=== PATIENT | male | born 1930 | race Caucasian/White ===

== ENCOUNTER 2017-01-18 18:30 | Emergency (ER) | payer MEDICARE ==
[~2017-01-18] VITALS: Ht 177.8 cm; Wt 80.0 kg
[~2017-01-18 18:30] MED LIST: CIPR500T4 PO; COUM5TAB PO; CREO2400 PO; LISI10TA PO; NIAC500 PO; PROS5TAB2 PO; ULTR50TA PO; URIB118C PO; WARF7.5 PO
[2017-01-18 18:32] VITALS: BP 134/75; PULSE 84; RESP 15; TEMP 98.2; O2SAT 97
[2017-01-18] MEDS ORDERED: LISI-586 PO (19:06)
[2017-01-18] MEDS ORDERED: ATOR10TA15 PO (19:06)
[2017-01-18] MEDS ORDERED: WARF-21 PO (19:06)
[2017-01-18] MEDS ORDERED: WARF-23 PO (19:06)
[2017-01-18] MEDS ORDERED: CREON24 PO ×2 (19:07→19:11)
[2017-01-18] MEDS ORDERED: NIAC500T52 PO (19:12)
[2017-01-18] MEDS ORDERED: SODIUM CHLORIDE 0.9% FLUSH 10 ML FLUSH IVF PRN (19:15)
[2017-01-18 19:45] VITALS: O2SAT 96
[2017-01-18 20:00] LABS: AUTOMATED NEUTROPHIL # 5.7 TH/MM3 (1.8-7.7); BASOPHIL # 0.1 TH/MM3 (0-0.2); BASOPHIL % 0.6 % (0.0-2.0); EOSINOPHIL # 0.1 TH/MM3 (0-0.4); EOSINOPHIL % 1.7 % (0.0-4.0); HEMATOCRIT 32.4 % (39.0-51.0); HEMO FLAGS DIFF FINAL; LYMPH % 18.2 % (9.0-44.0); LYMPHOCYTE # 1.5 TH/MM3 (1.0-4.8); MEAN CELL VOLUME 88.4 FL (80.0-100.0); MEAN CORPUSCULAR HEMOGLOBIN 29.7 PG (27.0-34.0); MEAN CORPUSCULAR HGB CONC 33.6 % (32.0-36.0); MONO % 8.1 % (0.0-8.0); NEUT % 71.4 % (16.0-70.0); PLATELET COUNT 306 TH/MM3 (150-450); RED BLOOD COUNT 3.66 MIL/MM3 (4.50-5.90); RED CELL DISTRIBUTION WIDTH 14.5 % (11.6-17.2)
[2017-01-18 20:26] LABS: BICARBONATE 27.3 MEQ/L (21.0-32.0); POTASSIUM 4.6 MEQ/L (3.5-5.1)
[2017-01-18] MEDS ORDERED: IODIXANOL 320 MG/ML 10 ML VIAL (for RAD SPEC) IV ONE (20:36)
--- NOTE | 2017-01-18 20:56 | RADRPT ---
EXAM DATE/TIME: 01/18/2017 20:36 [facility] COMPARISON: Report only CTA CHEST W 3D RECON, January 14, 2011, 6:26. INDICATIONS : Abnormal chest x-ray; possible mass. IV CONTRAST: 47 cc Visipaque (iodixanol) IV RADIATION DOSE: 5.57 CTDIvol (mGy) MEDICAL HISTORY : Cardiovascular disease. Hypertension. Diabetes mellitus type 2.PE SURGICAL HISTORY : None. ENCOUNTER: Initial ACUITY: 1 day PAIN SCALE: 5/10 LOCATION: chest TECHNIQUE: Volumetric scanning of the chest was performed. Using automated exposure control and adjustment of t he mA and/or kV according to patient size, radiation dose was kept as low as reasonably achievable to obtain optimal diagnostic quality images. FINDINGS: Large, heterogeneous dural based mass seen posteriorly of the left hemithorax, measures approximately 9.0 x 12.8 x 14.7 cm in size. A similar mass is seen laterally measuring 3.1 x 4.4 x 3.1 cm. There i s a small left pleural effusion. Lungs are clear. No lymphadenopathy. Normal heart size. Right and left-sided coronary artery calcification noted. 16 mm sclerotic focus seen of T5. No other focal bone lesion seen. CONCLUSION: Pleural-based masses on the left, with a very large mass posteriorly and a smaller mass laterally, ma lignant until proven otherwise. Small left pleural effusion. These were not reported on the prior ashwin dy. Indeterminate sclerotic focus of T5. Enrrique Torres MD on January 18, 2017 at 20:51 Board Certified Radiologist. This report was verified electronically.
--- NOTE | 2017-01-18 21:00 | PD ---
HPI Chief Complaint: Pain: Acute or Chronic Time Seen by Provider: 18:49 Travel History International Travel<30 days: No Contact w/Intl Traveler<30days: No Traveled to known affect area: No History of Present Illness HPI The patient is 86. He has had pain in his left thoracic back. A rib series of the left chest was performed in urgent care clinic and a mass was observed. The patient was sent directly here for cross sectional imaging. He's had no shortness of breath or chest pain per se. The back pain has been present for a few weeks. It's worse with palpation. He denies any recent injury. No cough or fever. He has a history of pulmonary embolism from years prior however completed his anticoagulation course. He follows up with Dr. Quarles. [facility], [facility] Past Medical History Arthritis: No Asthma: No Blood Disorders: No Heart Rhythm Problems: No Cancer: No Cardiovascular Problems: Yes High Cholesterol: Yes Chest Pain: No Congestive Heart Failure: No COPD: No Cerebrovascular Accident: No Diabetes: Yes Patient Takes Glucophage: No Diminished Hearing: Yes (RUBY) Gastrointestinal Disorders: Yes GERD: Yes Glaucoma: No Genitourinary: Yes (ENLARGED PROSTATE-MICROWAVE PROCEDURE 07/26/08) Headaches: No Hepatitis: No Hiatal Hernia: No Hypertension: Yes Implanted Vascular Access Dvce: No Kidney Stones: No Medical other: No Musculoskeletal: No Neurologic: Yes (TEMPERO-ARTERITIS) Psychiatric: No Reproductive: No Respiratory: Yes Immunizations Current: No Migraines: No Myocardial Infarction: No Renal Failure: No Seizures: No Sleep Apnea: No Thyroid Disease: No Ulcer: No Past Surgical History Abdominal Surgery: No Appendectomy: No Cardiac Surgery: No Cholecystectomy: No Ear Surgery: No Endocrine Surgery: No Eye Surgery: No Genitourinary Surgery: No Gynecologic Surgery: No Neurologic Surgery: No Oral Surgery: Yes (TEETH EXTRACTIONS) Pacemaker: No Thoracic Surgery: No Other Surgery: Yes (PROSTATE MICROWAVE SURGERY) Social History Alcohol Use: Yes (RARELY) Tobacco Use: Yes (1 PPD) Substance Use: No Allergies-Medications (Allergen,Severity, Reaction): Coded Allergies: No Known Allergies (Unverified , 12/02/14) Reported Meds & Prescriptions Reported Meds & Active Scripts Active Reported Niacin ER (Niacin) 500 Mg Tab 500 Mg PO DAILY Creon (Amylase/Lipase/Protease) 24,000-76,000-120,000 Units Cap 1 Cap PO TIDPC PRN Creon (Amylase/Lipase/Protease) 24,000-76,000-120,000 Units Cap 2 Cap PO TIDPC Zestoretic (Lisinopril-Hctz) 20-12.5 Mg Tab 0.5 Tab PO DAILY Warfarin 5 Mg Tab 5 Mg PO SUMOTUWETHSA @ 1600 Warfarin 7.5 Mg Tab 7.5 Mg PO FR Atorvastatin (Atorvastatin Calcium) 10 Mg Tab 10 Mg PO AC DINNER Physical Exam Narrative GENERAL: 86-year-old male well-nourished well-developed pleasant SKIN: Focused skin assessment warm/dry. HEAD: Atraumatic. Normocephalic. EYES: Pupils equal and round. No scleral icterus. No injection or drainage. ENT: No nasal bleeding or discharge. Mucous membranes pink and moist. NECK: Trachea midline. No JVD. CARDIOVASCULAR: Regular rate and rhythm. No murmur appreciated. RESPIRATORY: No accessory muscle use. Clear to auscultation. Breath sounds equal bilaterally. GASTROINTESTINAL: Abdomen soft, non-tender, nondistended. Hepatic and splenic margins not palpable. MUSCULOSKELETAL: No obvious minimal tenderness left parathoracic musculature. NEUROLOGICAL: Awake and alert. No obvious cranial nerve deficits. Motor grossly within normal limits. Normal speech. PSYCHIATRIC: Appropriate mood and affect; insight and judgment normal. Data Data Last Documented VS Vital Signs Date Time Temp Pulse Resp B/P Pulse Ox O2 Delivery O2 Flow Rate FiO2 01/18/17 21:33 79 16 122/59 97 01/18/17 19:45 Room Air 01/18/17 18:32 98.2 Orders Electrocardiogram (01/18/17 19:07) Basic Metabolic Panel (Bmp) (01/18/17 19:07) Complete Blood Count With Diff (01/18/17 19:07) Ecg Monitoring (01/18/17 19:07) Iv Access Insert/Monitor (01/18/17 19:07) Oximetry (01/18/17 19:07) Sodium Chloride 0.9% Flush (Ns Flush) (01/18/17 19:15) Ct Thorax/ Chest W Iv Contrast (01/18/17 ) Iodixanol 320 Inj (Visipaque 320 Inj) (01/18/17 20:36) Labs Laboratory Tests Test 01/18/17 19:40 White Blood Count 8.0 TH/MM3 Red Blood Count 3.66 MIL/MM3 Hemoglobin 10.9 GM/DL Hematocrit 32.4 % Mean Corpuscular Volume 88.4 FL Mean Corpuscular Hemoglobin 29.7 PG Mean Corpuscular Hemoglobin 33.6 % Concent Red Cell Distribution Width 14.5 % Platelet Count 306 TH/MM3 Mean Platelet Volume 7.4 FL Neutrophils (%) (Auto) 71.4 % Lymphocytes (%) (Auto) 18.2 % Monocytes (%) (Auto) 8.1 % Eosinophils (%) (Auto) 1.7 % Basophils (%) (Auto) 0.6 % Neutrophils # (Auto) 5.7 TH/MM3 Lymphocytes # (Auto) 1.5 TH/MM3 Monocytes # (Auto) 0.6 TH/MM3 Eosinophils # (Auto) 0.1 TH/MM3 Basophils # (Auto) 0.1 TH/MM3 CBC Comment DIFF FINAL Differential Comment Sodium Level 137 MEQ/L Potassium Level 4.6 MEQ/L Chloride Level 101 MEQ/L Carbon Dioxide Level 27.3 MEQ/L Anion Gap 9 MEQ/L Blood Urea Nitrogen 45 MG/DL Creatinine 1.74 MG/DL Estimat Glomerular Filtration 37 ML/MIN Rate Random Glucose 182 MG/DL Calcium Level 8.9 MG/DL MDM Medical Decision Making Medical Screen Exam Complete: Yes Emergency Medical Condition: Yes Medical Record Reviewed: Yes Differential Diagnosis mass, abscess, effusion Narrative Course CBC & BMP Diagram 01/18/17 19:40 Last [address] 01/18/17 0000 Signed Impressions: Service Date/Time: Wednesday, January 18, 2017 20:36 - CONCLUSION: Pleural-based masses on the left, with a very large mass posteriorly and a smaller mass laterally, malignant until proven otherwise. Small left pleural effusion. These were not reported on the prior study. Indeterminate sclerotic focus of T5. Enrrique Torres MD The patient is resting comfortably and feels better, is alert and in no distress. The patients results and examination findings were discussed. The repeat examination is unremarkable and benign. The history, exam, diagnostic testing, and current condition do not suggest any significant pathology to warrant further testing, continued ED treatment, admission, or surgical evaluation at this point. The vital signs have been stable. The patient does not have uncontrollable pain, intractable vomiting, or other significant symptoms. The patient's condition is stable and appropriate for discharge. The patient will pursue further outpatient evaluation with a primary care physician or other designated or consulting physician as indicated in the discharge instructions. The patient expressed understanding and was agreeable with this plan. Diagnosis Primary Impression: Lung mass Additional Impression: Back pain Qualified Code: M54.6 - Left-sided thoracic back pain, unspecified chronicity Referrals: Swathi Sahni MD f/u on Saturday Additional Instructions: You have a choice when it comes to health care, and we are glad that you chose [facility]. Hopefully, we have met your expectations on today's visit. You are welcome to return to [facility] at any time, as we are committed to meeting the health care needs of our community. Med/Other Pt SpecificInfo: No Change to Meds Disposition: 01 DISCHARGE HOME Condition: Rodríguez Lizama MD January 18, 2017 21:00
[2017-01-18 21:33] VITALS: BP 122/59; PULSE 79; RESP 16; O2SAT 97
--- NOTE | 2017-01-19 10:06 | EKG ---
Date Performed: 01/18/2017 Time Performed: 19:33:02 PTAGE: 86 years EKG: Sinus rhythm WITH FIRST DEGREE AV BLOCK MARKED LEFT AXIS DEVIATION RIGHT BUNDLE BRANCH BLOCK ABNORMAL ECG PREVIOUS TRACING : 01/14/2011 04.39 DOCTOR: Gia Lugo Interpretating Date/Time 01/19/2017 10:05:06
== END 2017-01-18 22:00 | disposition home or self-care (01) ==
LOC: NEPD 18:30
DX: R91.8 Other nonspecific abnormal finding of lung field (principal); M54.6 Pain in thoracic spine; J90 Pleural effusion, not elsewhere classified; I44.0 Atrioventricular block, first degree; I45.10 Unspecified right bundle-branch block; E78.00 Pure hypercholesterolemia, unspecified; E11.9 Type 2 diabetes mellitus without complications; H91.90 Unspecified hearing loss, unspecified ear; I10 Essential (primary) hypertension; F17.210 Nicotine dependence, cigarettes, uncomplicated
CPT/HCPCS: 71260; 80048; 85025; 93005; 99284; Q9967

== ENCOUNTER 2017-02-04 07:57 | Day surgery (SDC) | payer MEDICARE ==
[2017-02-04] VITALS (9 sets, daily range): BP systolic 115–140; BP diastolic 55–69; PULSE 77–89; RESP 16–20; TEMP 98.1–99; O2SAT 95–97
[~2017-02-04] VITALS: Ht 177.8 cm; Wt 75.0 kg
[~2017-02-04 07:57] MED LIST changes: +ATOR10TA15 PO; -CIPR500T4 PO; -COUM5TAB PO; -CREO2400 PO; +CREON24 PO; +LISI-586 PO; -LISI10TA PO; -NIAC500 PO; +NIAC500T52 PO; -PROS5TAB2 PO; -ULTR50TA PO; -URIB118C PO; +WARF-21 PO; +WARF-23 PO; -WARF7.5 PO
[2017-02-04] MEDS ORDERED: PERC5TAB12 PO (08:29)
[2017-02-04] MEDS ORDERED: CENTTAB PO (08:29)
[2017-02-04] MEDS ORDERED: SODIUM CHLOR 0.9% 1000 ML IV SCH (08:45)
[2017-02-04 09:08] LABS: INTERNATIONAL NORMALIZED RATIO 1.2 RATIO; PROTHROMBIN TIME - PATIENT 13.9 SEC (9.8-11.6)
[2017-02-04] MEDS ORDERED: LIDOCAINE 1%/EPINEPHrine 1:100,000 SOLN 20 ML VIAL ONE (09:24)
[2017-02-04] MEDS ORDERED: MIDAZOLAM HCL 5 MG/5 ML VIAL ONE (09:33)
[2017-02-04] MEDS ORDERED: fentaNYL CITRATE 250 MCG/5 ML AMP ONE (09:33)
--- NOTE | 2017-02-04 10:45 | RADRPT ---
EXAM DATE/TIME: 02/04/2017 09:48 [facility] COMPARISON: CT THORAX W CONTRAST, January 18, 2017, 20:36. INDICATIONS : Left lung mass. SEDATION TIME: 30 minutes BIOPSY SITE: Left lung MEDICATION(S): 1.) 2 mg midazolam (Versed) IV 2.) 100 mcg fentanyl (Sublimaze) IV DEVICE(S): 1.) 18 gauge Millan blunt needle 2.) 20 gauge Temno core biopsy needle MEDICAL HISTORY : Shortness of breath. SURGICAL HISTORY : None. ENCOUNTER: Initial ACUITY: 1 day PAIN SCORE: 0/10 LOCATION: chest A total of nine core specimen(s) were obtained and sent to the laboratory for pathologic evaluation. PROCEDURE: 1. CT guided lung biopsy. 2. Conscious sedation with continuous EKG and oximetry monitoring. 3. EKG and oximetry remained stable throughout the procedure. Prior to the procedure informed consent was obtained. The patient's prior CT was reviewed. Using auto mated exposure control and adjustment of the mA and/or kV according to patient size, radiation dose w as kept as low as reasonably achievable to obtain optimal diagnostic quality images. The site was prepped in a sterile fashion. Full sterile technique was used, including cap, mask, malaika rile gloves and gown and a large sterile sheet. Hand hygiene and 2% chlorhexidine and/or betadine/al cohol prep was utilized per protocol for cutaneous antisepsis. The skin and subcutaneous tissues wer e infiltrated with local anesthetic solution. With CT guidance left lower lobe mass was localized. Biopsy was performed using the prescribed needle as above. Adequate hemostasis was obtained with compression at the puncture site. Follow-up CT scan reveals no pneumothorax or acute abnormality. Conscious sedation was performed with the prescribed dosages and duration as above in the presence of an independent trained radiology nurse to assist in the monitoring of the patient. EKG and oximetry remained stable throughout the procedure. The patient tolerated the procedure well and there were no complications. The patient was sent to Radiology Outpatient Unit in stable condition. CONCLUSION: Uncomplicated CT guided biopsy of the left lung mass. Enrrique Rowan MD on February 04, 2017 at 10:29 Board Certified Radiologist. This report was verified electronically.
[2017-02-04] MEDS ORDERED: oxyCODONE/ACETAMINOPHEN 5 MG/325 MG TAB PO PRN (11:00)
--- NOTE | 2017-02-04 11:47 | RADRPT ---
EXAM DATE/TIME: 02/04/2017 11:16 [facility] COMPARISON: CT THORAX W CONTRAST, January 18, 2017, 20:36. CT NEEDLE BIOPSY LUNG, LEFT, February 04, 2017, 9:48. INDICATIONS : Status post left lung biopsy. MEDICAL HISTORY : Pulmonary embolism. SURGICAL HISTORY : None. ENCOUNTER: Initial ACUITY: 1 day PAIN SCORE: 5/10 LOCATION: Left chest FINDINGS: There is no evidence of pneumothorax following left lung biopsy. Large left lung mass is noted. Basil ar density is presumably worsening consolidative change. Right lung is grossly clear. CONCLUSION: No pneumothorax Enrrique Pedroza MD on February 04, 2017 at 11:43 Board Certified Radiologist. This report was verified electronically.
--- NOTE | 2017-02-04 13:33 | RADRPT ---
EXAM DATE/TIME: 02/04/2017 12:52 [facility] COMPARISON: CT THORAX W CONTRAST, January 18, 2017, 20:36. CHEST EXPIRATION ONLY, February 04, 2017, 11:16. INDICATIONS : Post left side lung bx. MEDICAL HISTORY : short of breath. SURGICAL HISTORY : None. ENCOUNTER: Initial ACUITY: 1 day PAIN SCORE: 2/10 LOCATION: Bilateral chest FINDINGS: Portable upright expiratory view of the chest demonstrates no pneumothorax following recent left lung mass biopsy. There is a persistent large masslike opacity overlying the left mid and lower lung zone . Right lung demonstrates no abnormality. CONCLUSION: No pneumothorax is visualized. Enrrique Rowan MD on February 04, 2017 at 13:31 Board Certified Radiologist. This report was verified electronically.
== END 2017-02-04 14:18 | disposition home or self-care (01) ==
LOC: HRAD 07:57 → HRIP 07:58 → HRAD 14:18
PROVIDERS: ATTEND Internal Medicine
DX: R91.8 Other nonspecific abnormal finding of lung field (principal); Z86.711 Personal history of pulmonary embolism
CPT/HCPCS: 32405; 71010; 77012; 85610; 85730; 88305; 88341; 88342; J2250; J3010

== ENCOUNTER 2017-02-22 19:20 | Inpatient (IN) | payer MEDICARE ==
[~2017-02-22] VITALS: Ht 175.3 cm; Wt 77.5 kg
[2017-02-22] VITALS (7 sets, daily range): BP systolic 106–118; BP diastolic 50–60; PULSE 72–110; RESP 14–20; TEMP 97.8–98.5; O2SAT 94–95
[~2017-02-22 19:20] MED LIST changes: +CENTTAB PO; +PERC5TAB12 PO
[2017-02-22] MEDS ORDERED: MULT1TAB64 PO (19:46)
[2017-02-22] MEDS ORDERED: HYDR-3516 PO (19:46)
--- NOTE | 2017-02-22 20:05 | PD ---
HPI Chief Complaint: Abnormal Results Time Seen by Provider: 19:55 Travel History International Travel<30 days: No Contact w/Intl Traveler<30days: No Traveled to known affect area: No History of Present Illness HPI Patient is an 86-year-old male presents emergency department for evaluation of elevated INR. Patient had a routine INR performed today and his primary care physician's office and he was told that it was 15 and he needed to come into the emergency department. Patient has a history of lung cancer on chemotherapy with Dr. Simpson. 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 Patient complains of his chronic left-sided chest pain secondary to the tumor which is on the left side of his chest and requests pain medicine. He denies any blood in the stool dark in the stool abdominal pain nausea vomiting diarrhea. PFSH Past Medical History Hx Anticoagulant Therapy: Yes (warfarin 5mg 6days a week and 7.5mg on saturday) Arthritis: No Asthma: No Blood Disorders: No Heart Rhythm Problems: No Cancer: Yes (LEFT LUNG ) Cardiovascular Problems: Yes High Cholesterol: Yes Chest Pain: No Congestive Heart Failure: No COPD: No Cerebrovascular Accident: No Diabetes: No Diminished Hearing: Yes ([place]) Gastrointestinal Disorders: Yes GERD: Yes Glaucoma: No Genitourinary: Yes (ENLARGED PROSTATE-MICROWAVE PROCEDURE 07/26/08) Headaches: No Hepatitis: No Hiatal Hernia: No Hypertension: Yes Implanted Vascular Access Dvce: No Kidney Stones: No Musculoskeletal: No Neurologic: Yes (TEMPERO-ARTERITIS) Psychiatric: No Reproductive: No Respiratory: Yes (PE) Immunizations Current: Yes Migraines: No Myocardial Infarction: No Renal Failure: No Seizures: No Sleep Apnea: No Thyroid Disease: No Ulcer: No Tetanus Vaccination: Unknown Influenza Vaccination: Yes Past Surgical History Abdominal Surgery: No Appendectomy: No Cardiac Surgery: No Cholecystectomy: No Ear Surgery: No Endocrine Surgery: No Eye Surgery: No Genitourinary Surgery: No Gynecologic Surgery: No Neurologic Surgery: No Oral Surgery: Yes (TEETH EXTRACTIONS) Pacemaker: No Thoracic Surgery: No Other Surgery: Yes (PROSTATE MICROWAVE SURGERY) Social History Alcohol Use: No Tobacco Use: Yes (1 PPD UNTIL 02/14/17 NOW 3 CIGS DAILY) Substance Use: No Allergies-Medications (Allergen,Severity, Reaction): Coded Allergies: No Known Allergies (Unverified , 02/04/17) Reported Meds & Prescriptions Reported Meds & Active Scripts Active Reported Francisco Willis Men Tablet (Multivit-Min/FA/Lycopen/Lutein) 1 Each Tablet 1 Tab PO DAILY Hydrocodone-Acetaminophen 5-325 mg Tab 1 Tab PO Q4H Niacin ER (Niacin) 500 Mg Tab 500 Mg PO DAILY Creon (Amylase/Lipase/Protease) 24,000-76,000-120,000 Units Cap 2 Cap PO TIDPC Zestoretic (Lisinopril-Hctz) 20-12.5 Mg Tab 0.5 Tab PO DAILY Warfarin 5 Mg Tab 5 Mg PO SUMOTUWETHSA @ 1600 Warfarin 7.5 Mg Tab 7.5 Mg PO FR Atorvastatin (Atorvastatin Calcium) 10 Mg Tab 10 Mg PO AC DINNER Review of Systems Except as stated in HPI: all other systems reviewed are Neg Physical Exam Narrative GENERAL: Well-developed well-nourished in no discomfort. SKIN: There are scattered bruising superficial on his person. Left hand, right eyelid, right forearm. Nothing on his torso. HEAD: Atraumatic. Normocephalic. EYES: Pupils equal and round. No scleral icterus. No injection or drainage. ENT: No nasal bleeding or discharge. Mucous membranes pink and moist. NECK: Trachea midline. No JVD. CARDIOVASCULAR: Regular rate and rhythm. No murmur appreciated. RESPIRATORY: No accessory muscle use. Clear to auscultation. Breath sounds equal bilaterally. GASTROINTESTINAL: Abdomen soft, non-tender, nondistended. Hepatic and splenic margins not palpable. RECTAL: No gross blood, no melena, trace positive occult stool. MUSCULOSKELETAL: No obvious deformities. No clubbing. No cyanosis. No edema. NEUROLOGICAL: Awake and alert. Cranial nerves II through XII are grossly intact nonfocal, 5 out of 5 strength in all 4 extremities.. PSYCHIATRIC: Appropriate mood and affect; insight and judgment normal. Data Data Last Documented VS Vital Signs Date Time Temp Pulse Resp B/P Pulse Ox O2 Delivery O2 Flow Rate FiO2 02/22/17 21:15 98 16 106/54 94 Room Air 02/22/17 19:32 98.1 Orders Ckmb (Isoenzyme) Profile (02/22/17 20:01) Complete Blood Count With Diff (02/22/17 20:01) Comprehensive Metabolic Panel (02/22/17 20:01) Magnesium (Mg) (02/22/17 20:01) Prothrombin Time / Inr (Pt) (02/22/17 20:01) Act Partial Throm Time (Ptt) (02/22/17 20:01) Troponin I (02/22/17 20:01) Ecg Monitoring (02/22/17 20:01) Iv Access Insert/Monitor (02/22/17 20:01) Oximetry (02/22/17 20:01) Oxygen Administration (02/22/17 20:01) Sodium Chloride 0.9% Flush (Ns Flush) (02/22/17 20:15) Acetamin-Hydrocod 325-5 Mg ([place] 5-325 (02/22/17 20:15) Tylenol (Acetaminophen) (02/22/17 20:02) Phytonadione (Mephyton) (02/22/17 21:30) Type And Screen (02/22/17 21:19) Red Blood Cells (Rbc) (02/22/17 21:19) Fresh Frozen Plasma (Ffp) (02/22/17 21:19) Blood Product Administration .UPON TRANSFUSION (02/22/17 21:19) Sodium Chlor 0.9% 250 Ml Inj (Ns 250 Ml (02/22/17 21:30) Chest, Single Ap (02/22/17 ) Electrocardiogram (02/22/17 ) Ct Brain W/O Iv Contrast(Rout) (02/22/17 ) Admit Order (Ed Use Only) (02/22/17 ) Labs Laboratory Tests Test 02/22/17 02/22/17 02/22/17 20:10 21:33 21:35 White Blood Count 14.3 TH/MM3 Red Blood Count 2.80 MIL/MM3 Hemoglobin 7.8 GM/DL Hematocrit 24.1 % Mean Corpuscular Volume 86.3 FL Mean Corpuscular Hemoglobin 27.9 PG Mean Corpuscular Hemoglobin 32.3 % Concent Red Cell Distribution Width 14.0 % Platelet Count 659 TH/MM3 Mean Platelet Volume 7.4 FL Neutrophils (%) (Auto) 77.2 % Lymphocytes (%) (Auto) 10.7 % Monocytes (%) (Auto) 11.5 % Eosinophils (%) (Auto) 0.1 % Basophils (%) (Auto) 0.5 % Neutrophils # (Auto) 11.1 TH/MM3 Lymphocytes # (Auto) 1.5 TH/MM3 Monocytes # (Auto) 1.6 TH/MM3 Eosinophils # (Auto) 0.0 TH/MM3 Basophils # (Auto) 0.1 TH/MM3 CBC Comment DIFF FINAL Differential Comment Prothrombin Time GREATER THAN 180.0 SEC Prothromb Time International GREATER THAN Ratio 16.7 RATIO Activated Partial 107.8 SEC Thromboplast Time Sodium Level 137 MEQ/L Potassium Level 5.1 MEQ/L Chloride Level 101 MEQ/L Carbon Dioxide Level 23.8 MEQ/L Anion Gap 12 MEQ/L Blood Urea Nitrogen 70 MG/DL Creatinine 1.50 MG/DL Estimat Glomerular Filtration 44 ML/MIN Rate Random Glucose 137 MG/DL Calcium Level 7.9 MG/DL Magnesium Level 2.3 MG/DL Total Bilirubin 0.4 MG/DL Aspartate Amino Transf 45 U/L (AST/SGOT) Alanine Aminotransferase 47 U/L (ALT/SGPT) Alkaline Phosphatase 145 U/L Total Creatine Kinase 66 U/L Troponin I LESS THAN 0.02 NG/ML Total Protein 6.5 GM/DL Albumin 2.1 GM/DL Acetaminophen Level 7.0 MCG/ML Blood Type A POSITIVE A POSITIVE Antibody Screen NEGATIVE Crossmatch Leukocyte-Reduced Red Blood Cells Blood Bank Comment MDM Medical Decision Making Medical Screen Exam Complete: Yes Emergency Medical Condition: Yes Differential Diagnosis Elevated INR, Coumadin toxicity, Tylenol toxicity seems highly unlikely, liver failure, Narrative Course Patient was roomed in emergency Department, there is no signs of overt bleeding at this time. Coags returned and shows an INR greater than 16.7. Patient was discussed with Dr. Workman is examination scorer for hematology. We discussed the patient 's hemoglobin has dropped 3 g over the past 30 days. To that and he was given 2 units PRBCs by mouth vitamin K 10 mg as well as FFP. He recommended that vitamin K be given 10 mg every 8 hours and repeated INR in the morning. To that and he will be admitted to the hospital. Remains hemodynamically stable in the emergency department. Discussion admission with Dr. Mclean 's request the patient have a CAT scan of her head to rule out intracranial bleeding and I think this is a reasonable thing to pursue. The patient is neurologically nonfocal and I think that there is a low probability however the INR does increase the probability minimally. CT head was ordered and shows no acute intracranial abnormality. Patient also had a chest x-ray at that time to further evaluate the mass, there was a pleural effusion which was increased in size. CAT scan of the chest was ordered with IV contrast slightly after the patient went to the floor to rule out intrathoracic bleeding and there is no evidence of intrathoracic bleeding. Last [address] 02/22/17 Signed Impressions: Service Date/Time: Wednesday, February 22, 2017 22:09 - CONCLUSION: Normal examination for a patient of this age. Franco Parnell MD Chest X-Ray 02/22/17 Signed Impressions: Service Date/Time: Wednesday, February 22, 2017 21:45 - CONCLUSION: 1. Large left effusion occupying about two thirds of the left hemithorax. This is increased in size since February 04. Franco Parnell MD Chest CT 02/22/17 Signed Impressions: Service Date/Time: Wednesday, February 22, 2017 23:48 - CONCLUSION: 1. Interval increase in the size of the large left lung mass. 2. Interval increase in left effusion which is partially loculated. 3. Chronic pancreatitis again noted with multiple calcifications. The duct remains prominent. 4. Severe hepatic steatosis. Silas Altamirano MD Diagnosis Primary Impression: Supratherapeutic INR Admitting Information Admitting Physician Requests: Admit Condition: Stable Serafin Das MD Feb 22, 2017 20:05
[2017-02-22 20:14] LABS: AUTOMATED NEUTROPHIL # 11.1 TH/MM3 (1.8-7.7); BASOPHIL # 0.1 TH/MM3 (0-0.2); BASOPHIL % 0.5 % (0.0-2.0); EOSINOPHIL % 0.1 % (0.0-4.0); HEMATOCRIT 24.1 % (39.0-51.0); HEMO FLAGS DIFF FINAL; LYMPH % 10.7 % (9.0-44.0); LYMPHOCYTE # 1.5 TH/MM3 (1.0-4.8); MEAN CELL VOLUME 86.3 FL (80.0-100.0); MEAN CORPUSCULAR HEMOGLOBIN 27.9 PG (27.0-34.0); MEAN CORPUSCULAR HGB CONC 32.3 % (32.0-36.0); MONO % 11.5 % (0.0-8.0); NEUT % 77.2 % (16.0-70.0); PLATELET COUNT 659 TH/MM3 (150-450); WHITE BLOOD COUNT 14.3 TH/MM3 (4.0-11.0)
[2017-02-22] MEDS ORDERED: ACETAMINOPHEN/HYDROcodone 325 MG/5 MG TAB PO ONE (20:15)
[2017-02-22] MEDS ORDERED: SODIUM CHLORIDE 0.9% FLUSH 10 ML FLUSH IVF PRN (20:15)
[2017-02-22 20:22] LABS: CHLORIDE 101 MEQ/L (98-107); POTASSIUM 5.1 MEQ/L (3.5-5.1); SODIUM (NA) 137 MEQ/L (136-145)
[2017-02-22 20:26] LABS: ANION GAP 12 MEQ/L (5-15); BICARBONATE 23.8 MEQ/L (21.0-32.0); BLOOD UREA NITROGEN 70 MG/DL (7-18); MAGNESIUM 2.3 MG/DL (1.5-2.5)
[2017-02-22 20:29] LABS: ALT (GPT) 47 U/L (12-78); AST (GOT) 45 U/L (15-37); GLOMERULAR FILTRATION RATE 44 ML/MIN (>89)
[2017-02-22 20:30] LABS: TOTAL BILIRUBIN ADULT 0.4 MG/DL (0.2-1.0)
[2017-02-22 20:32] LABS: ALKALINE PHOSPHATASE 145 U/L (45-117)
[2017-02-22 20:35] LABS: CREATINE KINASE 66 U/L (39-308)
[2017-02-22 20:55] LABS: PROTHROMBIN TIME - PATIENT GREATER THAN 180.0 SEC (9.8-11.6)
[2017-02-22 20:56] LABS: APTT (PATIENT) 107.8 SEC (24.3-30.1); INTERNATIONAL NORMALIZED RATIO GREATER THAN 16.7 RATIO
[2017-02-22] MEDS ORDERED: PHYTONADIONE 5 MG TAB PO ONE (21:30)
[2017-02-22] MEDS ORDERED: SODIUM CHLOR 0.9% 250 ML INJ 250 ML IV ONE (21:30)
[2017-02-22] MEDS ORDERED: MAGNESIUM HYDROXIDE SUSP 30 ML CUP PO PRN (22:00)
[2017-02-22] MEDS ORDERED: BISACODYL 10 MG SUPP RECTAL PRN (22:00)
[2017-02-22] MEDS ORDERED: LACTULOSE SYRUP 20 GM/30 ML CUP PO PRN (22:00)
[2017-02-22] MEDS ORDERED: ACETAMINOPHEN 325 MG TAB PO PRN (22:00)
[2017-02-22] MEDS ORDERED: SODIUM CHLORIDE 0.9% FLUSH 10 ML FLUSH IV FLUSH PRN (22:00)
[2017-02-22] MEDS ORDERED: ONDANSETRON HCL 4 MG/2 ML VIAL IVP PRN (22:00)
[2017-02-22] MEDS ORDERED: SENNOSIDES 8.6 MG TAB PO PRN (22:00)
--- NOTE | 2017-02-22 22:30 | RADHPO ---
EXAM DATE/TIME: 02/22/2017 21:45 [facility] COMPARISON: CHEST EXPIRATION ONLY, February 04, 2017, 12:52. INDICATIONS : Chest pain. MEDICAL HISTORY : Cardiovascular disease. Hypertension. Diabetes mellitus type 2. PE SURGICAL HISTORY : Left lung biopsy ENCOUNTER: Initial ACUITY: 1 day PAIN SCORE: 7/10 LOCATION: Bilateral chest FINDINGS: There is a large left effusion with reticulation of fluid since February 04. Right lung remains relatively clear. No pneumothorax. CONCLUSION: 1. Large left effusion occupying about two thirds of the left hemithorax. This is increased in size s gordon February 04. Franco Parnell MD on February 22, 2017 at 22:27 Board Certified Radiologist. This report was verified electronically.
--- NOTE | 2017-02-22 22:33 | RADHPO ---
EXAM DATE/TIME: 02/22/2017 22:09 [facility] COMPARISON: No previous studies available for comparison. INDICATIONS : History of lung cancer, on anticoagulants RADIATION DOSE: 63.24 CTDIvol (mGy) MEDICAL HISTORY : Carcinoma, lung. Hypertension. SURGICAL HISTORY : None. ENCOUNTER: Initial ACUITY: 1 day PAIN SCALE: 0/10 LOCATION: cranial TECHNIQUE: Multiple contiguous axial images were obtained of the head. Using automated exposure control and adj ustment of the mA and/or kV according to patient size, radiation dose was kept as low as reasonably a chievable to obtain optimal diagnostic quality images. FINDINGS: CEREBRUM: The ventricles are normal for age. No evidence of midline shift, mass lesion, hemorrhage or acute in farction. No extra-axial fluid collections are seen. POSTERIOR FOSSA: The cerebellum and brainstem are intact. The 4th ventricle is midline. The cerebellopontine angle i s unremarkable. EXTRACRANIAL: The visualized portion of the orbits is intact. SKULL: The calvaria is intact. No evidence of skull fracture. CONCLUSION: Normal examination for a patient of this age. Franco Parnell MD on February 22, 2017 at 22:31 Board Certified Radiologist. This report was verified electronically.
[2017-02-22] MEDS: MORPHINE SULFATE 4 MG/ML INJ IV PRN (23:45)
[2017-02-23] VITALS (26 sets, daily range): BP systolic 78–118; BP diastolic 37–63; PULSE 82–92; RESP 11–27; TEMP 97.3–98.7; O2SAT 94–98
[2017-02-23] MEDS ORDERED: IOHEXOL 350 MG/ML 10 ML VIAL (for RAD DIAG) IV ONE (00:09)
[2017-02-23] MEDS: ACETAMINOPHEN/HYDROcodone 325 MG/5 MG TAB PO PRN ×4 (00:13→20:17)
--- NOTE | 2017-02-23 00:16 | RADHPO ---
EXAM DATE/TIME: 02/22/2017 23:48 [facility] COMPARISON: CT NEEDLE BIOPSY LUNG, LEFT, February 04, 2017, 9:48. CHEST SINGLE AP, February 22, 2017, 21:45. CT THORAX W CONTRAST, January 18, 2017, 20:36. INDICATIONS : Evaluate for hemorrhage. Low INR. History of lung cancer. IV CONTRAST: 70 cc Omnipaque 350 (iohexol) IV RADIATION DOSE: 12.54 CTDIvol (mGy) MEDICAL HISTORY : Carcinoma, lung. Hypertension. SURGICAL HISTORY : None. ENCOUNTER: Initial ACUITY: 1 day PAIN SCALE: 0/10 LOCATION: chest TECHNIQUE: Volumetric scanning of the chest was performed. Using automated exposure control and adjustment of t he mA and/or kV according to patient size, radiation dose was kept as low as reasonably achievable to obtain optimal diagnostic quality images. FINDINGS: LUNGS: There has been interval increase in the size of the large left tumor mass. This measures approximatel y 12.8 x 14.5 x 24 cm in greatest AP by transverse by caudocranial dimension. On the prior study this measured approximately 9 x 12.8 x 14.7 cm. This extends to the level of the lung apex on the current exam . There is underlying emphysema. PLEURA: There is a moderate left pleural effusion again noted. There is a new ocular related component along the upper lung periphery. MEDIASTINUM: The heart and great vessels demonstrate no acute abnormality. There is no mediastinal or hilar lymph adenopathy. Mild coronary artery calcifications are again noted. There is no pericardial fluid. AXILLAE: Within normal limits. No lymphadenopathy. SKELETAL: Within normal limits for patient age. MISCELLANEOUS: The visualized upper abdominal organs demonstrate no acute abnormality. There is diffuse steatosis of the liver. There are multiple pancreatic calcifications consistent with chronic pancreatitis. The pa ncreatic duct is prominent and this appears stable. CONCLUSION: 1. Interval increase in the size of the large left lung mass. 2. Interval increase in left effusion which is partially loculated. 3. Chronic pancreatitis again noted with multiple calcifications. The duct remains prominent. 4. Severe hepatic steatosis. Silas Altamirano MD on February 23, 2017 at 0:06 Board Certified Radiologist. This report was verified electronically.
[2017-02-23] MEDS: SODIUM CHLORIDE 0.9% FLUSH 10 ML FLUSH IV FLUSH SCH ×2 (08:36→20:16)
[2017-02-23] MEDS: DOCUSATE SODIUM 50 MG/SENNA 8.6 MG TAB PO SCH ×2 (08:37→20:17)
[2017-02-23] MEDS ORDERED: PANTOPRAZOLE SODIUM 40 MG VIAL IV PUSH ONE (09:45)
[2017-02-23] MEDS: LIPASE/PROTEASE/AMYLASE (24,000/76,000/120,000) CAP PO SCH ×3 (10:26→17:48)
[2017-02-23] MEDS: MORPHINE SULFATE 4 MG/ML INJ IV PRN ×3 (10:34→23:36)
[2017-02-23 10:51] LABS: AUTOMATED NEUTROPHIL # 9.6 TH/MM3 (1.8-7.7); EOSINOPHIL % 0.1 % (0.0-4.0); LYMPH % 7.6 % (9.0-44.0); LYMPHOCYTE # 0.9 TH/MM3 (1.0-4.8); MEAN CELL VOLUME 85.8 FL (80.0-100.0); MEAN CORPUSCULAR HEMOGLOBIN 28.3 PG (27.0-34.0); MONO % 8.9 % (0.0-8.0); NEUT % 83.4 % (16.0-70.0); PLATELET COUNT 524 TH/MM3 (150-450); RED BLOOD COUNT 3.15 MIL/MM3 (4.50-5.90); RED CELL DISTRIBUTION WIDTH 13.1 % (11.6-17.2); WHITE BLOOD COUNT 11.4 TH/MM3 (4.0-11.0)
[2017-02-23 10:52] LABS: CHLORIDE 101 MEQ/L (98-107); POTASSIUM 4.7 MEQ/L (3.5-5.1); SODIUM (NA) 139 MEQ/L (136-145)
[2017-02-23 10:54] LABS: HEMO FLAGS DIFF FINAL
[2017-02-23 10:57] LABS: ANION GAP 11 MEQ/L (5-15); BICARBONATE 26.7 MEQ/L (21.0-32.0); BLOOD UREA NITROGEN 70 MG/DL (7-18)
[2017-02-23 11:00] LABS: ALT (GPT) 43 U/L (12-78); AST (GOT) 44 U/L (15-37); GLOMERULAR FILTRATION RATE 44 ML/MIN (>89)
[2017-02-23 11:02] LABS: TOTAL BILIRUBIN ADULT 1.8 MG/DL (0.2-1.0)
[2017-02-23 11:03] LABS: ALKALINE PHOSPHATASE 149 U/L (45-117)
[2017-02-23 11:05] LABS: INTERNATIONAL NORMALIZED RATIO 3.7 RATIO; PROTHROMBIN TIME - PATIENT 43.6 SEC (9.8-11.6)
--- NOTE | 2017-02-23 19:53 | HHI.HP ---
[facility] No Primary Care Physician Admission Diagnosis Supertherapeutic INR Diagnoses: Travel History International Travel<30 Days: No Contact w/Intl Traveler <30 Da: No Traveled to Known Affected Are: No History of Present Illness Patient seen this morning. Patient says he feels fine, reports no change in left-sided chest pain secondary to lung cancer. History is confounded by patient minimizing symptoms in the desire to go home. He denies any fatigue, however his states that he has been more fatigued, has not been able to walk over the past week due to generalized weakness. She does report that he is had some black bowel movements recently. Otherwise denies any new symptoms. Review of Systems performed and negative except for HPI and past medical history. Past Family Social History Past Medical History Lung cancer. Follows with oncology here. History of chronic pancreatitis with multiple interventions in the past Hyperlipidemia Pancreatic insufficiency Past Surgical History Multiple interventions pancreatitis in the past Procedures for diagnosis of lung cancer. Reported Medications Reported Meds & Active Scripts Active Reported Centrum Silver Men Tablet (Multivit-Min/FA/Lycopen/Lutein) 1 Each Tablet 1 Tab PO DAILY Hydrocodone-Acetaminophen 5-325 mg Tab 1 Tab PO Q4H Niacin ER (Niacin) 500 Mg Tab 500 Mg PO DAILY Creon (Amylase/Lipase/Protease) 24,000-76,000-120,000 Units Cap 2 Cap PO TIDPC Zestoretic (Lisinopril-Hctz) 20-12.5 Mg Tab 0.5 Tab PO DAILY Warfarin 5 Mg Tab 5 Mg PO SUMOTUWETHSA @ 1600 Warfarin 7.5 Mg Tab 7.5 Mg PO FR Atorvastatin (Atorvastatin Calcium) 10 Mg Tab 10 Mg PO AC DINNER Allergies: Coded Allergies: No Known Allergies (Unverified , 02/04/17) Family History Family history reviewed with the patient and found to be currently noncontributory. Social History Patient smoked one pack per day for the past 70 years. Nondrinker. Denies any illicit drugs. Physical Exam Vital Signs Vital Signs Date Time Temp Pulse Resp B/P Pulse Ox O2 Delivery O2 Flow Rate FiO2 02/23/17 16:00 97.3 84 24 105/54 94 02/23/17 12:11 88 20 103/51 02/23/17 12:00 97.9 88 21 99/46 98 02/23/17 08:00 98.0 90 21 110/55 97 02/23/17 07:00 91 02/23/17 06:02 84 15 92/39 02/23/17 06:00 84 14 89/42 02/23/17 05:39 88 27 100/48 02/23/17 05:33 82 13 90/44 02/23/17 05:30 82 13 84/44 02/23/17 04:30 82 12 87/37 02/23/17 04:05 84 14 98/41 02/23/17 04:00 98.7 82 13 82/55 02/23/17 03:32 82 12 93/41 02/23/17 03:32 82 12 93/41 02/23/17 03:30 82 13 86/40 02/23/17 03:30 82 13 86/40 02/23/17 03:14 86 13 92/46 02/23/17 03:14 86 13 92/46 02/23/17 03:13 84 13 78/41 02/23/17 03:13 84 13 78/41 02/23/17 03:00 98.7 82 12 93/43 02/23/17 03:00 82 12 93/43 02/23/17 02:30 86 17 91/43 02/23/17 02:30 86 17 91/43 02/23/17 02:00 86 14 97/49 95 02/23/17 02:00 98.3 86 14 97/49 02/23/17 01:59 98.3 86 11 101/50 02/23/17 01:59 86 11 101/50 94 02/23/17 01:47 97.8 90 20 118/55 98 02/23/17 00:59 92 12 110/52 02/23/17 00:59 92 12 110/52 97 02/23/17 00:54 97.6 91 16 110/52 96 02/22/17 23:15 98.5 90 20 118/55 95 02/22/17 23:00 97.8 89 14 118/60 95 02/22/17 23:00 72 02/22/17 22:35 75 18 114/59 95 Room Air 02/22/17 21:15 98 16 106/54 94 Room Air 02/22/17 21:11 18 02/22/17 20:17 16 94 Room Air 02/22/17 20:17 94 Room Air Physical Exam GENERAL: Thin 86-year-old gentleman. Appears fatigued, however in no acute distress. Alert. SKIN: No rashes or lesions. Cool and dry. Various patches of ecchymosis. No injuries. HEAD: Atraumatic. Normocephalic. No temporal or scalp tenderness. EYES: Pupils equal round and reactive. Extraocular motions intact. No scleral icterus. No injection or drainage. ENT: Nose without bleeding, purulent drainage or septal hematoma. Throat without erythema, tonsillar hypertrophy or exudate. Uvula midline. Airway patent. NECK: Trachea midline. No JVD. Supple, nontender, no meningeal signs. CARDIOVASCULAR: Regular rate and rhythm without murmurs, gallops, or rubs. RESPIRATORY: Decreased breath sounds of the left lung. No wheezes or rhonchi. GASTROINTESTINAL: Abdomen soft, non-tender, nondistended. No hepato-splenomegaly , or palpable masses. No guarding. MUSCULOSKELETAL: Extremities without clubbing, cyanosis, or edema. No joint tenderness, effusion, or edema noted. No calf tenderness. Negative Homans sign bilaterally. NEUROLOGICAL: Awake and alert. Cranial nerves II through XII intact. Motor and sensory grossly within normal limits. Generalized weakness, nonfocal. Normal speech. Laboratory Laboratory Tests Test 02/22/17 02/22/17 02/22/17 02/23/17 20:10 21:33 21:35 10:25 White Blood Count 14.3 11.4 Red Blood Count 2.80 3.15 Hemoglobin 7.8 8.9 Hematocrit 24.1 27.0 Mean Corpuscular Volume 86.3 85.8 Mean Corpuscular Hemoglobin 27.9 28.3 Mean Corpuscular Hemoglobin 32.3 33.0 Concent Red Cell Distribution Width 14.0 13.1 Platelet Count 659 524 Mean Platelet Volume 7.4 7.3 Neutrophils (%) (Auto) 77.2 83.4 Lymphocytes (%) (Auto) 10.7 7.6 Monocytes (%) (Auto) 11.5 8.9 Eosinophils (%) (Auto) 0.1 0.1 Basophils (%) (Auto) 0.5 0.0 Neutrophils # (Auto) 11.1 9.6 Lymphocytes # (Auto) 1.5 0.9 Monocytes # (Auto) 1.6 1.0 Eosinophils # (Auto) 0.0 0.0 Basophils # (Auto) 0.1 0.0 CBC Comment DIFF FINAL DIFF FINAL Differential Comment Prothrombin Time GREATER THAN 43.6 180.0 Prothromb Time International GREATER THAN 3.7 Ratio 16.7 Activated Partial 107.8 Thromboplast Time Sodium Level 137 139 Potassium Level 5.1 4.7 Chloride Level 101 101 Carbon Dioxide Level 23.8 26.7 Anion Gap 12 11 Blood Urea Nitrogen 70 70 Creatinine 1.50 1.50 Estimat Glomerular Filtration 44 44 Rate Random Glucose 137 151 Calcium Level 7.9 8.2 Magnesium Level 2.3 Total Bilirubin 0.4 1.8 Aspartate Amino Transf 45 44 (AST/SGOT) Alanine Aminotransferase 47 43 (ALT/SGPT) Alkaline Phosphatase 145 149 Total Creatine Kinase 66 Troponin I LESS THAN 0.02 Total Protein 6.5 6.6 Albumin 2.1 2.3 Acetaminophen Level 7.0 Blood Type A POSITIVE A POSITIVE Antibody Screen NEGATIVE Crossmatch Leukocyte-Reduced Red Blood Cells Blood Bank Comment Result Diagram: 02/23/17 1025 02/23/17 1025 Imaging Last Impressions Head CT 02/22/17 0000 Signed Impressions: Service Date/Time: Wednesday, February 22, 2017 22:09 - CONCLUSION: Normal examination for a patient of this age. Franco Parnell MD Chest X-Ray 02/22/17 0000 Signed Impressions: Service Date/Time: Wednesday, February 22, 2017 21:45 - CONCLUSION: 1. Large left effusion occupying about two thirds of the left hemithorax. This is increased in size since February 04. Franco Parnell MD Chest CT 02/22/17 0000 Signed Impressions: Service Date/Time: Wednesday, February 22, 2017 23:48 - CONCLUSION: 1. Interval increase in the size of the large left lung mass. 2. Interval increase in left effusion which is partially loculated. 3. Chronic pancreatitis again noted with multiple calcifications. The duct remains prominent. 4. Severe hepatic steatosis. Silas Altamirano MD Assessment and Plan Assessment and Plan //Supratherapeutic INR. //History of pulmonary embolism. -INR 16.7 on admission. 3. 7 repeat after vitamin K on admission -hOld warfarin. -Patient did have some black bowel movements. Started on Protonix. -if still with black bowel movements and uncontrolled anemia with corrected INR , will consider GI evaluation. -Improving with blood transfusion 2. Continue to monitor. //Anemia. Acute on chronic. Continue on Protonix. //pancreatic insufficiency. Chronic. Creon with meals //Uremia. Possibly secondary to anemia/dehydration. Place on normal saline maintenance overnight. //Prophylaxis. Supratherapeutic INR for history of DVT. Discussed Condition With patient, nurse, at bedside. Physician Certification 2 Midnight Certification Type: Admission for Inpatient Services Order for Inpatient Services The services are ordered in accordance with Medicare regulations or non- Medicare payer requirements, as applicable. In the case of services not specified as inpatient-only, they are appropriately provided as inpatient services in accordance with the 2-midnight benchmark. Estimated LOS (days): 2 days is the estimated time the patient will need to remain in the hospital, assuming treatment plan goals are met and no additional complications. Post-Hospital Plan: Not yet determined Karl Bishop MD Feb 23, 2017 19:53
[2017-02-23] MEDS: PANTOPRAZOLE SODIUM 40 MG VIAL IV PUSH SCH (20:16)
[2017-02-23] MEDS: SODIUM CHLOR 0.9% 1000 ML INJ 1,000 ML IV SCH (20:21)
[2017-02-24] VITALS (11 sets, daily range): BP systolic 92–115; BP diastolic 44–65; PULSE 82–96; RESP 12–33; TEMP 97.8–98.9; O2SAT 91–96
[2017-02-24] MEDS: ACETAMINOPHEN/HYDROcodone 325 MG/5 MG TAB PO PRN ×4 (02:42→21:07)
[2017-02-24 05:21] LABS: AUTOMATED NEUTROPHIL # 9.6 TH/MM3 (1.8-7.7); BASOPHIL % 0.2 % (0.0-2.0); EOSINOPHIL % 0.2 % (0.0-4.0); LYMPH % 8.5 % (9.0-44.0); MEAN CELL VOLUME 85.2 FL (80.0-100.0); MEAN CORPUSCULAR HEMOGLOBIN 27.9 PG (27.0-34.0); MEAN CORPUSCULAR HGB CONC 32.7 % (32.0-36.0); MONO % 12.3 % (0.0-8.0); NEUT % 78.8 % (16.0-70.0); PLATELET COUNT 538 TH/MM3 (150-450); RED BLOOD COUNT 3.05 MIL/MM3 (4.50-5.90); RED CELL DISTRIBUTION WIDTH 13.6 % (11.6-17.2); WHITE BLOOD COUNT 12.1 TH/MM3 (4.0-11.0)
[2017-02-24 05:29] LABS: POTASSIUM 4.8 MEQ/L (3.5-5.1)
[2017-02-24 05:33] LABS: BICARBONATE 26.4 MEQ/L (21.0-32.0); MAGNESIUM 2.4 MG/DL (1.5-2.5)
[2017-02-24 05:46] LABS: HEMO FLAGS DIFF FINAL
[2017-02-24 06:01] LABS: APTT (PATIENT) 74.1 SEC (24.3-30.1); INTERNATIONAL NORMALIZED RATIO 5.5 RATIO; PROTHROMBIN TIME - PATIENT 65.2 SEC (9.8-11.6)
[2017-02-24] MEDS: LIPASE/PROTEASE/AMYLASE (24,000/76,000/120,000) CAP PO SCH ×3 (07:46→17:12)
[2017-02-24] MEDS: PANTOPRAZOLE SODIUM 40 MG VIAL IV PUSH SCH ×2 (07:46→21:06)
[2017-02-24] MEDS: MORPHINE SULFATE 4 MG/ML INJ IV PRN ×3 (07:49→22:19)
[2017-02-24] MEDS: SODIUM CHLORIDE 0.9% FLUSH 10 ML FLUSH IV FLUSH SCH ×2 (07:50→21:06)
[2017-02-24] MEDS: DOCUSATE SODIUM 50 MG/SENNA 8.6 MG TAB PO SCH ×2 (07:50→21:00)
[2017-02-24] MEDS: SODIUM CHLOR 0.9% 1000 ML INJ 1,000 ML IV SCH (07:51)
[2017-02-24] MEDS ORDERED: MEGE40TA PO (09:39)
--- NOTE | 2017-02-24 09:59 | EKG ---
Date Performed: 02/22/2017 Time Performed: 21:59:50 PTAGE: 86 years EKG: Sinus arrhythmia Left axis deviation RBBB with left anterior fascicular block Generalized l ow QRS voltages Abnormal ECG PREVIOUS TRACING : 01/18/2017 19.33 DOCTOR: Ted Gna Interpretating Date/Time 02/24/2017 09:47:28
[2017-02-24 10:04] LABS: INDIRECT BILIRUBIN 0.4 MG/DL (0.0-0.8)
[2017-02-24] MEDS: DRONABINOL 2.5 MG CAP PO SCH ×2 (12:27→17:11)
[2017-02-24] MEDS: MEGESTROL ACETATE 40 MG TAB PO SCH ×3 (14:57→21:06)
[2017-02-24] MEDS: PHYTONADIONE 5 MG TAB PO SCH (17:09)
--- NOTE | 2017-02-24 22:52 | MB ---
cc: MILVIA DAVIS M.D. DATE OF CONSULTATION: 02/23/2017 REQUESTING PHYSICIAN: LILIANE REASON FOR CONSULTATION: Evaluation of lung cancer in a patient who is admitted for Coumadin toxicity. HISTORY OF PRESENT ILLNESS Tiana is a pleasant 86 year-old male. Recently he was referred to me for evaluation of non-small cell lung cancer. The patient was found to have locally advanced lung cancer. I have recommended radiation and chemotherapy. The patient is undergoing workup to start the treatment. The patient has a history of DVT with pulmonary embolism. He has been on Coumadin. His appetite is poor due to the lung cancer. The patient has not been eating for the last week or so. However, he has been taking regular Coumadin. He had a routine blood test done for INR at home. Subsequently he received a call from his primary care physician, Dr. Sahni, that his INR is supratherapeutic, was more than 16. He was advised to come to the emergency room for further evaluation. In the emergency room, when the patient came in yesterday, PT was found to be more than 180 and INR was found to be more thatn 16.7 and APTT was 107.8. I did receive a call from the emergency room physician, Dr. Dsa. I advised him to give him 10 milligrams of vitamin K p.o. and then FFP. The patient was not bleeding and the patient was admitted to the hospital. I have been asked to see the patient for further evaluation. The patient's INR was repeated this morning and it came back at 3.7. Coumadin has been put on hold. The patient has been complaining of left-sided rib cage pain which is due to the lung cancer. He is also complaining of weakness, tiredness, fatigue. He is complaining of anorexia and weight loss. The rest of the review of systems is negative. PAST MEDICAL HISTORY: 1. Pancreatic insufficiency 2. BPH 3. COPD 4. Hypercholesterolemia. 5. Hypertension 6. Right lower extremity DVT with pulmonary embolism in 2009. PAST SURGICAL HISTORY 1. Cataract. 2. ERCP with the biliary stent. 3. TURP 4. Colonoscopy. ALLERGIES None. MEDICATIONS: Prior to coming to the hospital: 1. Atorvastatin. 2. Multivitamin. 3. Creon. 4. Lortab. 5. Lisinopril 6. Hydrochlorothiazide. 7. Niacin. 8. Percocet 9. Coumadin. FAMILY HISTORY Mother after surgical complications. Father from small cell lung cancer. The patient has one brother who from kidney and bladder cancer. He has no sisters and no sons. However, he has two daughters, both are alive and well. SOCIAL HISTORY: The patient is , lives with his . He smokes cigarettes one pack a day for at least 70 years. He does not drink alcohol. He is a retired director of [employer]. PHYSICAL EXAMINATION: This is a well-developed elderly white male in mild to moderate distress due to the left-sided rib cage pain from locally advanced lung cancer. VITAL SIGNS: Temperature 97.3, heart rate is 84, blood pressure 105/54, O2 sat is 94%. HEENT: PERRLA, EOMI, anicteric. No oral lesions noted. Neck is supple. There is no cervical, supraclavicular, axillary lymphadenopathy noted. Lungs are clear. No wheezing, rhonchi or rales. Heart is regular rate and rhythm. Abdomen: Soft, nontender. No hepatosplenomegaly. Extremities: No pedal edema. Neurology: Awake, alert, oriented times three. Skin: No significant lesions are noted. ASSESSMENT 1. Locally advanced left lung cancer non-small cell type, undergoing workup to start treatment, radiation and chemotherapy. 2. Coumadin toxicity due to poor oral intake because of the lung cancer. 3. Right lower extremity DVT with pulmonary embolism, was on Coumadin since 2009. PLAN I have reviewed his available records and I had an extensive discussion with the patient and his regarding the Coumadin toxicity. The patient was on 5 mg of Coumadin which is his regular dose but he has not been eating for the last week. He has anorexia because of lung cancer. His INR is supratherapeutic. The patient has received vitamin K 10 mg p.o. and FFP and his INR has come down to 3.7. I do not want to resume the Coumadin. The patient needs Gnebqd-D-Fisn for the chemotherapy. I will ask interventional radiologist to place an Upbgtj-D-Lagl on Saturday. Will repeat the INR tomorrow. If the INR remains more than 2, then we will give him additional vitamin K. After the Lszsab-R-Vwjm placement, I will start him on Eliquis instead of the Coumadin which is affected by the lack of food. We discussed that the Eliquis would not be affected by the food and there is no monitoring required. The patient is hypercoagulable due to the lung cancer and with a history of right lower extremity DVT with extensive pulmonary embolism, he needs anticoagulation. The patient agreed to take the Eliquis but we will start after the Flbvig-L-Eozu placement on Saturday. After the port placement, the patient could be discharged to home and we will follow him in the office. The patient and his have asked several questions and these were answered to their satisfaction. Thank you for asking my opinion. MD DAVID Hernandez/AIRAM /10:23 PM /10:39 PM MEENA
--- NOTE | 2017-02-24 23:05 | HHI.PR ---
Subjective Remarks Patient seen this morning. Says he is feeling all right. No bowel movements. Reports chest pain is under control today. Patient and indicate that chemotherapy and further invasive treatment may be too much for the patient, which is a reasonable concern. They would like to consult palliative care. Objective Vital Signs Date Time Temp Pulse Resp B/P Pulse Ox O2 Delivery O2 Flow Rate FiO2 02/24/17 19:20 98.6 84 13 92/45 02/24/17 19:00 85 02/24/17 16:00 97.8 92 19 100/50 96 02/24/17 14:00 86 02/24/17 12:00 98.9 96 33 102/49 02/24/17 12:00 84 02/24/17 10:00 86 02/24/17 08:00 84 02/24/17 08:00 98.3 93 18 108/58 91 02/24/17 05:46 84 15 111/58 02/24/17 03:43 98.6 82 14 102/54 02/24/17 01:39 86 12 115/44 02/24/17 00:39 97.9 82 13 112/65 I/O 02/23/17 02/23/17 02/23/17 02/24/17 02/24/17 02/24/17 07:00 15:00 23:00 07:00 15:00 23:00 Intake Total 900 ml 490 ml 300 ml 2790 ml Output Total 0 ml 500 ml 600 ml 700 ml Balance 900 ml -10 ml -300 ml 2090 ml Intake Oral 240 ml 300 ml 840 ml IV Total 541 ml Packed Cells 300 ml 250 ml 1409 ml FFP 600 ml Output Urine Total 0 ml 500 ml 600 ml 700 ml # Voids 1 # Bowel Movements 0 0 Result Diagram: 02/24/17 1944 02/24/17 0440 Imaging Last Impressions Head CT 02/22/17 0000 Signed Impressions: Service Date/Time: Wednesday, February 22, 2017 22:09 - CONCLUSION: Normal examination for a patient of this age. Franco Parnell MD Chest X-Ray 02/22/17 0000 Signed Impressions: Service Date/Time: Wednesday, February 22, 2017 21:45 - CONCLUSION: 1. Large left effusion occupying about two thirds of the left hemithorax. This is increased in size since February 04. Franco Parnell MD Chest CT 02/22/17 0000 Signed Impressions: Service Date/Time: Wednesday, February 22, 2017 23:48 - CONCLUSION: 1. Interval increase in the size of the large left lung mass. 2. Interval increase in left effusion which is partially loculated. 3. Chronic pancreatitis again noted with multiple calcifications. The duct remains prominent. 4. Severe hepatic steatosis. Silas Altamirano MD Objective Remarks GENERAL: patient lying in bed. Appears comfortable. Alert and oriented 3. SKIN: Warm and dry.various patches of ecchymosis without any hematoma. HEAD: Normocephalic. EYES: No scleral icterus. No injection or drainage. NECK: Supple, trachea midline. No JVD. CARDIOVASCULAR: Regular rate and rhythm without murmurs, gallops, or rubs. RESPIRATORY: Breath sounds equal bilaterally. No accessory muscle use. GASTROINTESTINAL: Abdomen soft, non-tender, nondistended. MUSCULOSKELETAL: No cyanosis, or edema. BACK: Nontender without obvious deformity. No CVA tenderness. A/P Assessment and Plan =====02/24/17======= -Poor appetite. Continue Megace. Add Marinol. -Creatinine improving. Continue IV fluids. -Generalized weakness. Physical therapy -Hemoglobin stable. 8.1 -INR 5.5 today, slight increase. Vitamin K ordered by oncology. -Palliative care consultation //Supratherapeutic INR. //History of pulmonary embolism. -INR 16.7 on admission. 3. 7 repeat after vitamin K on admission -hOld warfarin. -Patient did have some black bowel movements. Started on Protonix. -if still with black bowel movements and uncontrolled anemia with corrected INR , will consider GI evaluation. -Improving with blood transfusion 2. Continue to monitor. //lung cancer. Appears to worsen on x-ray. Oncology consult on admission. //Anemia. Acute on chronic. Secondary to supratherapeutic INR. Continue on Protonix. //pancreatic insufficiency. Chronic. Creon with meals //Uremia. Possibly secondary to anemia/dehydration. -Improving with fluids //Prophylaxis. Supratherapeutic INR for history of DVT. Discharge Planning Pending clearance by oncology Physical therapy following. Karl Bishop MD Feb 24, 2017 23:05
[2017-02-25] VITALS (9 sets, daily range): BP systolic 97–126; BP diastolic 49–68; PULSE 78–92; RESP 11–19; TEMP 97.5–98.5; O2SAT 94–95
--- NOTE | 2017-02-25 00:57 | PD.ONC.PN ---
Subjective Subjective Remarks Complaining of left-sided rib cage pain Has Anorexia No bleeding noted Objective Data Date Time Temp Pulse Resp B/P Pulse Ox O2 Delivery O2 Flow Rate FiO2 02/25/17 00:30 98.3 82 17 104/52 02/24/17 19:20 98.6 84 13 92/45 02/24/17 19:00 85 02/24/17 16:00 97.8 92 19 100/50 96 02/24/17 14:00 86 02/24/17 12:00 98.9 96 33 102/49 02/24/17 12:00 84 02/24/17 10:00 86 02/24/17 08:00 84 02/24/17 08:00 98.3 93 18 108/58 91 02/24/17 05:46 84 15 111/58 02/24/17 03:43 98.6 82 14 102/54 02/24/17 01:39 86 12 115/44 Result Diagram: 02/24/17 1944 02/24/17 0440 Laboratory Results Laboratory Tests Test 02/24/17 02/24/17 02/24/17 04:40 11:45 19:44 White Blood Count 12.1 TH/MM3 Red Blood Count 3.05 MIL/MM3 Hemoglobin 8.5 GM/DL 8.2 GM/DL 8.1 GM/DL Hematocrit 26.0 % Mean Corpuscular Volume 85.2 FL Mean Corpuscular Hemoglobin 27.9 PG Mean Corpuscular Hemoglobin 32.7 % Concent Red Cell Distribution Width 13.6 % Platelet Count 538 TH/MM3 Mean Platelet Volume 7.3 FL Neutrophils (%) (Auto) 78.8 % Lymphocytes (%) (Auto) 8.5 % Monocytes (%) (Auto) 12.3 % Eosinophils (%) (Auto) 0.2 % Basophils (%) (Auto) 0.2 % Neutrophils # (Auto) 9.6 TH/MM3 Lymphocytes # (Auto) 1.0 TH/MM3 Monocytes # (Auto) 1.5 TH/MM3 Eosinophils # (Auto) 0.0 TH/MM3 Basophils # (Auto) 0.0 TH/MM3 CBC Comment DIFF FINAL Differential Comment Prothrombin Time 65.2 SEC Prothromb Time International 5.5 RATIO Ratio Activated Partial 74.1 SEC Thromboplast Time Sodium Level 138 MEQ/L Potassium Level 4.8 MEQ/L Chloride Level 103 MEQ/L Carbon Dioxide Level 26.4 MEQ/L Anion Gap 9 MEQ/L Blood Urea Nitrogen 66 MG/DL Creatinine 1.40 MG/DL Estimat Glomerular Filtration 48 ML/MIN Rate Random Glucose 115 MG/DL Calcium Level 7.7 MG/DL Phosphorus Level 3.1 MG/DL Magnesium Level 2.4 MG/DL Total Bilirubin 1.0 MG/DL Direct Bilirubin 0.6 MG/DL Indirect Bilirubin 0.4 MG/DL Aspartate Amino Transf 45 U/L (AST/SGOT) Alanine Aminotransferase 40 U/L (ALT/SGPT) Alkaline Phosphatase 158 U/L Total Protein 6.1 GM/DL Albumin 2.1 GM/DL Administered Medications Medications (Trade) Dose Ordered Sig/Mary Route PRN Reason Start Time Stop Time Status Last Admin Dose Admin Sodium Chloride (NS Flush) 2 ml BID IV FLUSH 02/23/17 09:00 02/24/17 21:06 Acetaminophen/ Hydrocodone Bitart (Humphrey 5-325 Mg) 1 tab Q4H PRN PO PAIN SCALE 3 TO 5 02/22/17 22:00 02/24/17 21:07 Morphine Sulfate (Morphine Inj) 2 mg Q3H PRN IV Pain 02-2302/22/17 22:00 02/24/17 22:19 Senna/Docusate Sodium (Halima-Colace) 1 tab BID PO 02/23/17 09:00 02/23/17 20:17 Pantoprazole Sodium (Protonix Inj) 40 mg Q12H IV PUSH 02/23/17 21:00 02/24/17 21:06 Amylase/Lipase/ Protease (Creon 24-76-120) 2 cap TIDPC PO 02/23/17 10:30 02/24/17 17:12 Dronabinol (Marinol) 2.5 mg BID@11,16 PO 02/24/17 12:00 02/24/17 17:11 Megestrol Acetate (Megace) 40 mg QID PO 02/24/17 14:00 02/24/17 21:06 Phytonadione (Mephyton) 5 mg Q8H PO 02/24/17 17:00 02/25/17 04:00 02/24/17 17:09 Objective Remarks GENERAL: Well-nourished, well-developed patient. SKIN: Warm and dry. HEAD: Normocephalic. EYES: No scleral icterus. No injection or drainage. NECK: Supple, trachea midline. No JVD or lymphadenopathy. LYMPHATIC: No adenopathy. CARDIOVASCULAR: Regular rate and rhythm without murmurs. RESPIRATORY: Breath sounds equal bilaterally. No accessory muscle use. GASTROINTESTINAL: Abdomen soft, non-tender, nondistended. EXTREMITIES: No cyanosis, or edema. MUSCULOSKELETAL: Adequate muscle tone. NEUROLOGICAL: No obvious focal deficit. Awake, alert, and oriented x3. PSYCHIATRIC: Appropriate mood and affect; insight and judgment normal. Assessment/Plan Problem List: (1) Supratherapeutic INR Status: Acute Plan: no more coumadin after the port tomorrow start eliquis 5 mg BID and d/c to home has fu appt with me on saturday. (2) Lung mass Status: Acute Plan: has locally advance NSCL ca consult IR for port tomorrow. start eliquis after the procedure and d/c home. Linda Becker MD Feb 25, 2017 00:57
[2017-02-25] MEDS: PHYTONADIONE 5 MG TAB PO SCH (01:19)
[2017-02-25] MEDS: ACETAMINOPHEN/HYDROcodone 325 MG/5 MG TAB PO PRN (01:19)
[2017-02-25 05:25] LABS: POTASSIUM 4.8 MEQ/L (3.5-5.1)
[2017-02-25 05:30] LABS: MAGNESIUM 2.3 MG/DL (1.5-2.5)
[2017-02-25 05:51] LABS: AUTOMATED NEUTROPHIL # 8.3 TH/MM3 (1.8-7.7); BASOPHIL % 0.1 % (0.0-2.0); EOSINOPHIL # 0.1 TH/MM3 (0-0.4); EOSINOPHIL % 0.6 % (0.0-4.0); LYMPH % 13.7 % (9.0-44.0); LYMPHOCYTE # 1.5 TH/MM3 (1.0-4.8); MEAN CELL VOLUME 87.4 FL (80.0-100.0); MEAN CORPUSCULAR HEMOGLOBIN 28.9 PG (27.0-34.0); MONO % 10.4 % (0.0-8.0); NEUT % 75.2 % (16.0-70.0); PLATELET COUNT 522 TH/MM3 (150-450); RED BLOOD COUNT 2.97 MIL/MM3 (4.50-5.90); RED CELL DISTRIBUTION WIDTH 14.6 % (11.6-17.2); WHITE BLOOD COUNT 11.1 TH/MM3 (4.0-11.0)
[2017-02-25 05:56] LABS: HEMO FLAGS DIFF FINAL
[2017-02-25 06:15] LABS: INTERNATIONAL NORMALIZED RATIO 4.9 RATIO; PROTHROMBIN TIME - PATIENT 58.6 SEC (9.8-11.6)
[2017-02-25] MEDS: MORPHINE SULFATE 4 MG/ML INJ IV PRN ×2 (07:43→12:37)
[2017-02-25] MEDS: PANTOPRAZOLE SODIUM 40 MG VIAL IV PUSH SCH ×2 (08:31→21:27)
[2017-02-25] MEDS: MEGESTROL ACETATE 40 MG TAB PO SCH ×4 (08:31→21:27)
[2017-02-25] MEDS: LIPASE/PROTEASE/AMYLASE (24,000/76,000/120,000) CAP PO SCH ×3 (08:31→18:15)
[2017-02-25] MEDS: DOCUSATE SODIUM 50 MG/SENNA 8.6 MG TAB PO SCH ×2 (08:31→21:28)
[2017-02-25] MEDS: SODIUM CHLORIDE 0.9% FLUSH 10 ML FLUSH IV FLUSH SCH ×2 (08:32→21:27)
[2017-02-25] MEDS: DRONABINOL 2.5 MG CAP PO SCH ×2 (10:24→16:31)
--- NOTE | 2017-02-25 10:42 | HHI.PR ---
Subjective Remarks Follow up coagulopathy, cancer. Patient states that he feels OK today. Pain is adequately controlled. Denies dyspnea at rest. Objective Vitals Vital Signs Date Time Temp Pulse Resp B/P Pulse Ox O2 Delivery O2 Flow Rate FiO2 02/25/17 08:00 98.3 84 16 115/68 02/25/17 07:48 16 02/25/17 07:00 83 02/25/17 04:00 98.5 78 11 97/49 02/25/17 00:30 98.3 82 17 104/52 02/24/17 19:20 98.6 84 13 92/45 02/24/17 19:00 85 02/24/17 16:00 97.8 92 19 100/50 96 02/24/17 14:00 86 02/24/17 12:00 98.9 96 33 102/49 02/24/17 12:00 84 I/O 02/24/17 02/24/17 02/24/17 02/25/17 02/25/17 02/25/17 07:00 15:00 23:00 07:00 15:00 23:00 Intake Total 2790 ml 300 ml 120 ml Output Total 700 ml 650 ml Balance 2090 ml -350 ml 120 ml Intake Oral 840 ml 300 ml 120 ml IV Total 541 ml Packed Cells 1409 ml Output Urine Total 700 ml 650 ml # Bowel Movements 0 Result Diagram: 02/25/17 0440 02/25/17 0440 Imaging Last Impressions Head CT 02/22/17 0000 Signed Impressions: Service Date/Time: Wednesday, February 22, 2017 22:09 - CONCLUSION: Normal examination for a patient of this age. Franco Parnell MD Chest X-Ray 02/22/17 0000 Signed Impressions: Service Date/Time: Wednesday, February 22, 2017 21:45 - CONCLUSION: 1. Large left effusion occupying about two thirds of the left hemithorax. This is increased in size since February 04. Franco Parnell MD Chest CT 02/22/17 0000 Signed Impressions: Service Date/Time: Wednesday, February 22, 2017 23:48 - CONCLUSION: 1. Interval increase in the size of the large left lung mass. 2. Interval increase in left effusion which is partially loculated. 3. Chronic pancreatitis again noted with multiple calcifications. The duct remains prominent. 4. Severe hepatic steatosis. Silas Altamirano MD Objective Remarks General: No acute distress. Heart: Regular rate and rhythm. No murmur. Lungs: Clear to auscultation bilaterally. No wheezes, rales, or rhonchi. Breathing is nonlabored. Abdomen: Soft, nontender, nondistended. Extremities: No lower extremity edema. Psych: Alert and oriented. Urinary Catheter: No Vascular Central Line Catheter: No A/P Problem List: (1) Supratherapeutic INR ICD Code: R79.1 Status: Acute (2) Non-small cell carcinoma of lung ICD Code: C34.90 Status: Chronic Assessment and Plan 1. Supratherapeutic INR: Secondary to Coumadin. Patient received FFP 2 units. He also received vitamin K. Coumadin on hold. Hemoglobin is stable, but low. We' ll give more vitamin K today. 2. Non-small cell lung cancer: Appreciate oncology recommendations. Interventional radiology consulted for port placement. Unable to have procedure today due to elevated INR. 3. Anemia: Hemoglobin low, but stable. Status post transfusion of 2 units PRBCs. Monitor H&H. 4. Palliative care consultation is pending. Discharge Planning Per oncology, patient can be discharged home following port placement. Awaiting palliative care consult. Cash Adrian MD Feb 25, 2017 10:42
[2017-02-25] MEDS ORDERED: PHYTONADIONE 10 MG/ML VIAL SQ ONE (10:45)
[2017-02-25 15:45] LABS: HEMATOCRIT 28.1 % (39.0-51.0); REVIEW FLAG FINAL
--- NOTE | 2017-02-25 16:02 | PD.CONS ---
Consult Service Palliative Care Consult Requested By Dr. Bishop Primary Care Physician No Primary Care Physician Reason for Consultation a. To assist with evaluation and management of symptoms including: pain. b. To assist medical decision maker(s) with: better understanding of current medical conditions; weighing benefits/burdens of medical treatment options; making medical treatment decisions. HPI History of Present Illness Patient is a 86-year-old male with a past medical history significant for lung cancer, DVT with PE. Patient was newly diagnosed with lung cancer in January 2017, and is scheduled to undergo workup for treatment. Patient had a routine blood test done at home and INR was found to be supratherapeutic. Patient was told to go to the emergency room for further evaluation. In the ER patient was found to have an INR of 16.7. Patient was given 10 mg of vitamin K and also FFP. Patient was admitted to hospitalist service. Patient's INR has decreased significantly. Patient was seen by oncologist, and he scheduled for port placement and to get treatment for cancer. Patient is given vitamin K again today, and plan is to get port placement tomorrow. Palliative care was consulted to review goals of care. On my visit patient is at bedside, is tired and painful. Patient specifically is on the left side and radiates to the back. He has associated fatigue and some dyspnea. is at bedside. Had a long family meeting with patient and patient's spouse. Review patient's hospital course, reviewed patient functional status, reviewed challenges that patient will face, including likely intolerance to chemoradiation given patient' s advanced age. Patient nodded his head and says he he understands, but he would at least want to try. Spoke with patient and about hospice services and what they can offer. Ther goals is: To try chemotherapy and radiation as offered. If for some reason patient is not responsive to treatment, or patient is intolerant to treatment ( which I emphasize is a real possibility), they are amenable to hospice services at that point. The amenable to start long-acting pain medication, for pain and shortness of breath. They have a living will, but is unavailable. Patient endorses a DNR status. Have completed a community DNR, and healthcare surrogate designation. Function/Cognitive Trajectory Per patient in the past month, has poor appetite, losing weight, getting more more tired. He is still able to do his own ADLs prior to hospitalization, but currently feels he is even more tired than before. Review of Systems Constitutional: COMPLAINS OF: Fatigue, Weight loss Respiratory: COMPLAINS OF: Shortness of breath Cardiovascular: COMPLAINS OF: Dyspnea on Exertion Gastrointestinal: COMPLAINS OF: Abdominal pain Musculoskeletal: COMPLAINS OF: Back pain Past Family Social History Coded Allergies: No Known Allergies (Unverified , 02/04/17) Past Medical History Lung cancer. Follows with oncology here. History of chronic pancreatitis with multiple interventions in the past Hyperlipidemia Pancreatic insufficiency Past Surgical History Multiple interventions pancreatitis in the past Procedures for diagnosis of lung cancer. Reported Medications Centrum Silver Men Tablet (Multivit-Min/FA/Lycopen/Lutein) 1 Each Tablet 1 Tab PO DAILY Hydrocodone-Acetaminophen 5-325 mg Tab 1 Tab PO Q4H Niacin ER (Niacin) 500 Mg Tab 500 Mg PO DAILY Creon (Amylase/Lipase/Protease) 24,000-76,000-120,000 Units Cap 2 Cap PO TIDPC Zestoretic (Lisinopril-Hctz) 20-12.5 Mg Tab 0.5 Tab PO DAILY Warfarin 5 Mg Tab 5 Mg PO SUMOTUWETHSA @ 1600 Warfarin 7.5 Mg Tab 7.5 Mg PO FR Atorvastatin (Atorvastatin Calcium) 10 Mg Tab 10 Mg PO AC DINNER Current Medications Medications (Trade) Dose Ordered Sig/Mary Route Start Time Stop Time Status Last Admin (NS Flush) 2 ml UNSCH PRN IV FLUSH 02/22/17 22:00 (NS Flush) 2 ml BID IV FLUSH 02/23/17 09:00 02/25/17 08:32 (Zofran Inj) 4 mg Q6H PRN IVP 02/22/17 22:00 (Tylenol) 650 mg Q6H PRN PO 02/22/17 22:00 (Halima-Colace) 1 tab BID PO 02/23/17 09:00 02/25/17 08:31 (Milk Of Magnesia Liq) 30 ml Q12H PRN PO 02/22/17 22:00 (Senokot) 17.2 mg Q12H PRN PO 02/22/17 22:00 (Dulcolax Supp) 10 mg DAILY PRN RECTAL 02/22/17 22:00 (Lactulose Liq) 30 ml DAILY PRN PO 02/22/17 22:00 (Protonix Inj) 40 mg Q12H IV PUSH 02/23/17 21:00 02/25/17 08:31 (Creon 24-76-120) 2 cap TIDPC PO 02/23/17 10:30 02/25/17 12:36 (Marinol) 2.5 mg BID@11,16 PO 02/24/17 12:00 02/25/17 10:24 (Megace) 40 mg QID PO 02/24/17 14:00 02/25/17 12:36 (Roxicodone) 5 mg Q4H PRN PO 02/25/17 15:30 UNV (Roxicodone) 10 mg Q4H PRN PO 02/25/17 15:30 UNV (OxyCONTIN CR) 10 mg HS PO 02/25/17 21:00 UNV Family History Father has lung cancer in which she from. Substance Use Tobacco: She has a significant smoking history- one pack per day until February 14, 2017. He now smokes 3 cigarettes daily Alcohol: No Prescription med abuse: No Illicits: No Psychosocial History Patient originally from [place]. Has live-in [place] for the past 20 years. He has 2 daughters, one in [place] 1 in [place] ( Jennifer Ling, and Akosua Pizano) Patient is (Gabbi Asencio) Living Will: Completed, but not made available Health Care Surrogate: Copy in medical record Physical Exam Vital Signs Date Time Temp Pulse Resp B/P Pulse Ox O2 Delivery O2 Flow Rate FiO2 02/25/17 12:42 14 02/25/17 12:00 98.0 88 19 107/60 02/25/17 08:00 98.3 84 16 115/68 02/25/17 07:00 83 02/25/17 04:00 98.5 78 11 97/49 02/25/17 00:30 98.3 82 17 104/52 02/24/17 19:20 98.6 84 13 92/45 02/24/17 19:00 85 02/24/17 16:00 97.8 92 19 100/50 96 02/24/17 02/25/17 19:00 07:00 Intake Total 1949 ml 1141 ml Output Total 500 ml 850 ml Balance 1449 ml 291 ml Intake Oral 540 ml 600 ml IV Total 541 ml Packed Cells 1409 ml Output Urine Total 500 ml 850 ml # Bowel Movements 0 Exam CONSTITUTIONAL/GENERAL: This is an frail elderly gentleman, alert but fatigued SKIN: No jaundice, rashes, or lesions. Ecchymoses on upper extremities. No wounds seen anteriorly. Skin temperature appropriate. Not diaphoretic. HEAD: Atraumatic. Normocephalic. EYES: Pupils equal and round and reactive. Extraocular motions intact. No scleral icterus. No injection or drainage. Fundi not examined. ENT: Hearing grossly normal. Nose without bleeding or purulent drainage. Throat without visible erythema, exudates, masses, or lesions. NECK: Trachea midline. Supple, nontender. No palpable thyroid enlargement or nodularity. CARDIOVASCULAR: Regular rate and rhythm without murmurs, gallops, or rubs. RESPIRATORY/CHEST: Symmetric, unlabored respirations. Clear to auscultation. Breath sounds equal bilaterally. No wheezes, rales, or rhonchi. GASTROINTESTINAL: Abdomen soft, non-tender, nondistended. No hepato-splenomegaly , or palpable masses. No guarding. Bowel sounds present. GENITOURINARY: Without palpable bladder distension. Dong catheter in place. MUSCULOSKELETAL: Extremities without clubbing, cyanosis, or edema. No joint tenderness or effusion noted. No calf tenderness. No mottling or clubbing. LYMPHATICS: No palpable cervical or supraclavicular adenopathy. NEUROLOGICAL: Awake and alert. Motor and sensory grossly within normal limits. Follows commands. Cognitively sharp. Moves all extremities. PSYCHIATRIC: No obvious anxiety/depression. no apparent hallucinations or other psychotic thought process. Diagnostic Tests Laboratory Laboratory Tests Test 02/22/17 02/22/17 02/22/17 02/23/17 20:10 21:33 21:35 10:25 White Blood Count 14.3 TH/MM3 11.4 TH/MM3 (4.0-11.0) (4.0-11.0) Red Blood Count 2.80 MIL/MM3 3.15 MIL/MM3 (4.50-5.90) (4.50-5.90) Hemoglobin 7.8 GM/DL 8.9 GM/DL (13.0-17.0) (13.0-17.0) Hematocrit 24.1 % 27.0 % (39.0-51.0) (39.0-51.0) Mean Corpuscular Volume 86.3 FL 85.8 FL (80.0-100.0) (80.0-100.0) Mean Corpuscular Hemoglobin 27.9 PG 28.3 PG (27.0-34.0) (27.0-34.0) Mean Corpuscular Hemoglobin 32.3 % 33.0 % Concent (32.0-36.0) (32.0-36.0) Red Cell Distribution Width 14.0 % 13.1 % (11.6-17.2) (11.6-17.2) Platelet Count 659 TH/MM3 524 TH/MM3 (150-450) (150-450) Mean Platelet Volume 7.4 FL 7.3 FL (7.0-11.0) (7.0-11.0) Neutrophils (%) (Auto) 77.2 % 83.4 % (16.0-70.0) (16.0-70.0) Lymphocytes (%) (Auto) 10.7 % 7.6 % (9.0-44.0) (9.0-44.0) Monocytes (%) (Auto) 11.5 % 8.9 % (0.0-8.0) (0.0-8.0) Eosinophils (%) (Auto) 0.1 % (0.0-4.0) 0.1 % (0.0-4.0) Basophils (%) (Auto) 0.5 % (0.0-2.0) 0.0 % (0.0-2.0) Neutrophils # (Auto) 11.1 TH/MM3 9.6 TH/MM3 (1.8-7.7) (1.8-7.7) Lymphocytes # (Auto) 1.5 TH/MM3 0.9 TH/MM3 (1.0-4.8) (1.0-4.8) Monocytes # (Auto) 1.6 TH/MM3 1.0 TH/MM3 (0-0.9) (0-0.9) Eosinophils # (Auto) 0.0 TH/MM3 0.0 TH/MM3 (0-0.4) (0-0.4) Basophils # (Auto) 0.1 TH/MM3 0.0 TH/MM3 (0-0.2) (0-0.2) CBC Comment DIFF FINAL DIFF FINAL Differential Comment Prothrombin Time GREATER THAN 43.6 SEC 180.0 SEC (9.8-11.6) (9.8-11.6) Prothromb Time International GREATER THAN 3.7 RATIO Ratio 16.7 RATIO Activated Partial 107.8 SEC Thromboplast Time (24.3-30.1) Sodium Level 137 MEQ/L 139 MEQ/L (136-145) (136-145) Potassium Level 5.1 MEQ/L 4.7 MEQ/L (3.5-5.1) (3.5-5.1) Chloride Level 101 MEQ/L 101 MEQ/L (98-107) (98-107) Carbon Dioxide Level 23.8 MEQ/L 26.7 MEQ/L (21.0-32.0) (21.0-32.0) Anion Gap 12 MEQ/L (5-15) 11 MEQ/L (5-15) Blood Urea Nitrogen 70 MG/DL (7-18) 70 MG/DL (7-18) Creatinine 1.50 MG/DL 1.50 MG/DL (0.60-1.30) (0.60-1.30) Estimat Glomerular Filtration 44 ML/MIN (>89) 44 ML/MIN (>89) Rate Random Glucose 137 MG/DL 151 MG/DL (74-106) (74-106) Calcium Level 7.9 MG/DL 8.2 MG/DL (8.5-10.1) (8.5-10.1) Magnesium Level 2.3 MG/DL (1.5-2.5) Total Bilirubin 0.4 MG/DL 1.8 MG/DL (0.2-1.0) (0.2-1.0) Aspartate Amino Transf 45 U/L (15-37) 44 U/L (15-37) (AST/SGOT) Alanine Aminotransferase 47 U/L (12-78) 43 U/L (12-78) (ALT/SGPT) Alkaline Phosphatase 145 U/L 149 U/L (45-117) (45-117) Total Creatine Kinase 66 U/L (39-308) Troponin I LESS THAN 0.02 NG/ML (0.02-0.05) Total Protein 6.5 GM/DL 6.6 GM/DL (6.4-8.2) (6.4-8.2) Albumin 2.1 GM/DL 2.3 GM/DL (3.4-5.0) (3.4-5.0) Acetaminophen Level 7.0 MCG/ML (10.0-30.0) Blood Type A POSITIVE A POSITIVE Antibody Screen NEGATIVE Crossmatch Leukocyte-Reduced Red Blood Cells Blood Bank Comment Test 02/23/17 02/24/17 02/24/17 02/24/17 20:07 04:40 11:45 19:44 Hemoglobin 8.5 GM/DL 8.5 GM/DL 8.2 GM/DL 8.1 GM/DL (13.0-17.0) (13.0-17.0) (13.0-17.0) (13.0-17.0) White Blood Count 12.1 TH/MM3 (4.0-11.0) Red Blood Count 3.05 MIL/MM3 (4.50-5.90) Hematocrit 26.0 % (39.0-51.0) Mean Corpuscular Volume 85.2 FL (80.0-100.0) Mean Corpuscular Hemoglobin 27.9 PG (27.0-34.0) Mean Corpuscular Hemoglobin 32.7 % Concent (32.0-36.0) Red Cell Distribution Width 13.6 % (11.6-17.2) Platelet Count 538 TH/MM3 (150-450) Mean Platelet Volume 7.3 FL (7.0-11.0) Neutrophils (%) (Auto) 78.8 % (16.0-70.0) Lymphocytes (%) (Auto) 8.5 % (9.0-44.0) Monocytes (%) (Auto) 12.3 % (0.0-8.0) Eosinophils (%) (Auto) 0.2 % (0.0-4.0) Basophils (%) (Auto) 0.2 % (0.0-2.0) Neutrophils # (Auto) 9.6 TH/MM3 (1.8-7.7) Lymphocytes # (Auto) 1.0 TH/MM3 (1.0-4.8) Monocytes # (Auto) 1.5 TH/MM3 (0-0.9) Eosinophils # (Auto) 0.0 TH/MM3 (0-0.4) Basophils # (Auto) 0.0 TH/MM3 (0-0.2) CBC Comment DIFF FINAL Differential Comment Prothrombin Time 65.2 SEC (9.8-11.6) Prothromb Time International 5.5 RATIO Ratio Activated Partial 74.1 SEC Thromboplast Time (24.3-30.1) Sodium Level 138 MEQ/L (136-145) Potassium Level 4.8 MEQ/L (3.5-5.1) Chloride Level 103 MEQ/L (98-107) Carbon Dioxide Level 26.4 MEQ/L (21.0-32.0) Anion Gap 9 MEQ/L (5-15) Blood Urea Nitrogen 66 MG/DL (7-18) Creatinine 1.40 MG/DL (0.60-1.30) Estimat Glomerular Filtration 48 ML/MIN (>89) Rate Random Glucose 115 MG/DL (74-106) Calcium Level 7.7 MG/DL (8.5-10.1) Phosphorus Level 3.1 MG/DL (2.5-4.9) Magnesium Level 2.4 MG/DL (1.5-2.5) Total Bilirubin 1.0 MG/DL (0.2-1.0) Direct Bilirubin 0.6 MG/DL (0.0-0.2) Indirect Bilirubin 0.4 MG/DL (0.0-0.8) Aspartate Amino Transf 45 U/L (15-37) (AST/SGOT) Alanine Aminotransferase 40 U/L (12-78) (ALT/SGPT) Alkaline Phosphatase 158 U/L (45-117) Total Protein 6.1 GM/DL (6.4-8.2) Albumin 2.1 GM/DL (3.4-5.0) Test 02/25/17 04:40 White Blood Count 11.1 TH/MM3 (4.0-11.0) Red Blood Count 2.97 MIL/MM3 (4.50-5.90) Hemoglobin 8.6 GM/DL (13.0-17.0) Hematocrit 26.0 % (39.0-51.0) Mean Corpuscular Volume 87.4 FL (80.0-100.0) Mean Corpuscular Hemoglobin 28.9 PG (27.0-34.0) Mean Corpuscular Hemoglobin 33.0 % Concent (32.0-36.0) Red Cell Distribution Width 14.6 % (11.6-17.2) Platelet Count 522 TH/MM3 (150-450) Mean Platelet Volume 7.5 FL (7.0-11.0) Neutrophils (%) (Auto) 75.2 % (16.0-70.0) Lymphocytes (%) (Auto) 13.7 % (9.0-44.0) Monocytes (%) (Auto) 10.4 % (0.0-8.0) Eosinophils (%) (Auto) 0.6 % (0.0-4.0) Basophils (%) (Auto) 0.1 % (0.0-2.0) Neutrophils # (Auto) 8.3 TH/MM3 (1.8-7.7) Lymphocytes # (Auto) 1.5 TH/MM3 (1.0-4.8) Monocytes # (Auto) 1.2 TH/MM3 (0-0.9) Eosinophils # (Auto) 0.1 TH/MM3 (0-0.4) Basophils # (Auto) 0.0 TH/MM3 (0-0.2) CBC Comment DIFF FINAL Differential Comment Prothrombin Time 58.6 SEC (9.8-11.6) Prothromb Time International 4.9 RATIO Ratio Sodium Level 139 MEQ/L (136-145) Potassium Level 4.8 MEQ/L (3.5-5.1) Chloride Level 104 MEQ/L (98-107) Carbon Dioxide Level 27.0 MEQ/L (21.0-32.0) Anion Gap 8 MEQ/L (5-15) Blood Urea Nitrogen 59 MG/DL (7-18) Creatinine 1.40 MG/DL (0.60-1.30) Estimat Glomerular Filtration 48 ML/MIN (>89) Rate Random Glucose 109 MG/DL (74-106) Calcium Level 7.5 MG/DL (8.5-10.1) Phosphorus Level 2.9 MG/DL (2.5-4.9) Magnesium Level 2.3 MG/DL (1.5-2.5) Albumin 2.1 GM/DL (3.4-5.0) Result Diagram: 02/25/17 0440 02/25/17 0440 Imaging Last Impressions Head CT 02/22/17 0000 Signed Impressions: Service Date/Time: Wednesday, February 22, 2017 22:09 - CONCLUSION: Normal examination for a patient of this age. Franco Panrell MD Chest X-Ray 02/22/17 Signed Impressions: Service Date/Time: Wednesday, February 22, 2017 21:45 - CONCLUSION: 1. Large left effusion occupying about two thirds of the left hemithorax. This is increased in size since February 04. Franco Parnell MD Chest CT 02/22/17 0000 Signed Impressions: Service Date/Time: Wednesday, February 22, 2017 23:48 - CONCLUSION: 1. Interval increase in the size of the large left lung mass. 2. Interval increase in left effusion which is partially loculated. 3. Chronic pancreatitis again noted with multiple calcifications. The duct remains prominent. 4. Severe hepatic steatosis. Silas Altamirano MD Patient/Family Conference Present at Family Conference: Gabbi Asencio Family Conference Time (mins): 45 Family Conference Location: Bedside Issues Discussed: * Palliative care role, purpose, approach * Additional medical, psychosocial, and spiritual history * Patients general health, functional status, and cognitive changes in the months leading up to the current hospitalization * Patient/family understanding of the current medical problems * Patient/family understanding of prognosis * Patients goals of care as best understood from advance directives and/or conversations and/or values * Current medical treatment options and benefits/burdens of those options * Likely scenarios comparing ongoing aggressive care with a transition to comfort measures only * Questions answered to the best of my ability * Palliative care contact information provided Assessment and Plan Disease Oriented Problem List: (1) Non-small cell carcinoma of lung (2) Supratherapeutic INR (3) Back pain Symptom Scale: (1) Pain Comment: 5-6. More in the upper back. Pain could be cancer burden, back pain. (2) Dyspnea Comment: cancer burden. Pertinent Non-Medical Issues Psychosocial: Spiritual: Legal: Ethical issues impacting care: Important Contacts Gabbi Asencio (spouse ) [phone] Jennifer Sushil (daughter in [place]) [phone] Akosua Lu (daughter in [place]) [phone] Prognosis 86-year-old with non-small cell lung cancer, that her imaging has grown in size in the left side. Patient course of medical illness complicated by DVT, PE, fatigue, and pain. He is appropriate for hospice of goals of care are for comfort measures only. Code Status: No Code Plan == capacity-he is able to state that he has cancer, and he has capacity to make medical decisions. == Code: DNR/DNI/ no resucitation. He completed a community DNR today. == Health Care Surrogate: He completed HCS today. Gabbi Asencio () is primary. Daughters ( Saran and Akosua) are alternate. == Goals of care=Had a long family meeting with patient and patient's spouse. Review patient's hospital course, reviewed patient functional status, reviewed challenges that patient will face, including likely intolerance to chemoradiation given patient's advanced age. Patient nodded his head and says he he understands, but he would at least want to try. Spoke with patient and about hospice services and what they can offer. Ther goals is: To try chemotherapy and radiation as offered. If for some reason patient is not responsive to treatment, or patient is intolerant to treatment ( which I emphasize is a real possibility), they are amenable to hospice services at that point. is supportive, but realistic about patient 's functional status and situation. == Pain The amenable to start long-acting pain medication, for pain and shortness of breath. Given pt's kidney status, I will stop morphine and start oxycodone for breakthrough and oxycontin long acting, schedule. Pt has had multiple prn for pain in his back. == dyspnea- ask if they can qualify for home O2. Question was deferred to Attending physician. Time Spent Total Floor Time (mins): 60 >50% Counseling/Coord of Care: Yes Thank you for the opportunity to participate in the care of Mr. Asencio. Attestation To help prompt me to consider important information that might be impacting today's encounter and assessment, information from prior notes written by myself or my colleagues may have been "brought forward" into today's note. My signature on this note, however, is an attestation that I personally performed the exam, history, and/or decision-making noted today, and, unless otherwise indicated, the interactions with patient, family, and staff as well as the review of records all occurred today. I also attest that the listed assessment and stated plan reflect my best clinical judgment today based on the combination of historical information, prior notes, and today's exam/ interactions. When time spent is documented, it refers only to time spent today by the signer, or if indicated, combined time spent today by collaborating physician/nurse practitioner. Kana Grady MD Feb 25, 2017 16:01
--- NOTE | 2017-02-25 19:10 | PD.ONC.PN ---
Subjective Subjective Remarks Pt seen and examined, medical records reviewed including CT scans, labs, medications and vital signs. Subjectively patient reports severe pain in his chest and back, and wants to know if he can get his long-acting pain medications. He denies overt bleeding but has noted some blood in his mouth. He tells me he has no appetite and tells me he is very short of breath. Palliative care was in to see him earlier today, they discussed goals of care and discuss whether the patient would prefer end-of-life/comfort oriented care as opposed to aggressive disease directed treatment. Per the nursing staff the patient elected for aggressive disease directed therapy for the time being. Objective Data Date Time Temp Pulse Resp B/P Pulse Ox O2 Delivery O2 Flow Rate FiO2 02/25/17 16:00 97.5 90 16 121/65 02/25/17 12:42 14 02/25/17 12:00 98.0 88 19 107/60 02/25/17 08:00 98.3 84 16 115/68 02/25/17 07:00 83 02/25/17 04:00 98.5 78 11 97/49 02/25/17 00:30 98.3 82 17 104/52 02/24/17 19:20 98.6 84 13 92/45 02/25/17 02/25/17 02/25/17 07:00 15:00 23:00 Intake Total 300 ml 120 ml Output Total 650 ml 400 ml Balance -350 ml -280 ml Result Diagram: 02/25/17 1532 02/25/17 0440 Laboratory Results Laboratory Tests Test 02/24/17 02/25/17 02/25/17 19:44 04:40 15:32 Hemoglobin 8.1 GM/DL 8.6 GM/DL 9.0 GM/DL White Blood Count 11.1 TH/MM3 Red Blood Count 2.97 MIL/MM3 Hematocrit 26.0 % 28.1 % Mean Corpuscular Volume 87.4 FL Mean Corpuscular Hemoglobin 28.9 PG Mean Corpuscular Hemoglobin 33.0 % Concent Red Cell Distribution Width 14.6 % Platelet Count 522 TH/MM3 Mean Platelet Volume 7.5 FL Neutrophils (%) (Auto) 75.2 % Lymphocytes (%) (Auto) 13.7 % Monocytes (%) (Auto) 10.4 % Eosinophils (%) (Auto) 0.6 % Basophils (%) (Auto) 0.1 % Neutrophils # (Auto) 8.3 TH/MM3 Lymphocytes # (Auto) 1.5 TH/MM3 Monocytes # (Auto) 1.2 TH/MM3 Eosinophils # (Auto) 0.1 TH/MM3 Basophils # (Auto) 0.0 TH/MM3 CBC Comment DIFF FINAL Differential Comment Prothrombin Time 58.6 SEC Prothromb Time International 4.9 RATIO Ratio Sodium Level 139 MEQ/L Potassium Level 4.8 MEQ/L Chloride Level 104 MEQ/L Carbon Dioxide Level 27.0 MEQ/L Anion Gap 8 MEQ/L Blood Urea Nitrogen 59 MG/DL Creatinine 1.40 MG/DL Estimat Glomerular Filtration 48 ML/MIN Rate Random Glucose 109 MG/DL Calcium Level 7.5 MG/DL Phosphorus Level 2.9 MG/DL Magnesium Level 2.3 MG/DL Albumin 2.1 GM/DL Administered Medications Medications (Trade) Dose Ordered Sig/Mary Route PRN Reason Start Time Stop Time Status Last Admin Dose Admin Sodium Chloride (NS Flush) 2 ml BID IV FLUSH 02/23/17 09:00 02/25/17 08:32 Senna/Docusate Sodium (Halima-Colace) 1 tab BID PO 02/23/17 09:00 02/25/17 08:31 Pantoprazole Sodium (Protonix Inj) 40 mg Q12H IV PUSH 02/23/17 21:00 02/25/17 08:31 Amylase/Lipase/ Protease (Creon 24-76-120) 2 cap TIDPC PO 02/23/17 10:30 02/25/17 12:36 Dronabinol (Marinol) 2.5 mg BID@11,16 PO 02/24/17 12:00 02/25/17 16:31 Megestrol Acetate (Megace) 40 mg QID PO 02/24/17 14:00 02/25/17 12:36 Objective Remarks GENERAL: Elderly and somewhat frail appearing man laying in bed, in mild respiratory distress and pain. SKIN: Warm and dry. HEAD: Normocephalic. Oral examination: Dried blood on his teeth and his mouth. EYES: No scleral icterus. No injection or drainage. NECK: Supple, trachea midline. No JVD or lymphadenopathy. LYMPHATIC: No adenopathy. CARDIOVASCULAR: Tachycardic, S1 and S2 normal murmurs or gallops. RESPIRATORY: Tachypneic, decreased left lung air movement over all zones with conducted air sounds. Somewhat better air movement over the right lung though the right lung also has prolonged expiratory phase. GASTROINTESTINAL: Abdomen is distended, tympanic to percussion, no organ enlargement noted. EXTREMITIES: No cyanosis, trace pretibial edema. No calf tenderness. MUSCULOSKELETAL: Decreased muscle mass and tone. NEUROLOGICAL: No obvious focal deficit. Awake, alert, and oriented x3. PSYCHIATRIC: Appropriate mood and affect; insight and judgment normal. Assessment/Plan Problem List: (1) Supratherapeutic INR Status: Acute Plan: He was dosed with vitamin K earlier today for supratherapeutic INR. Repeat INR tomorrow morning. Recommend anticoagulation with Eliquis 5 mg twice daily; 2.5 mg twice daily may also be reasonable. (2) Lung mass Status: Acute Plan: Massive left-sided lung mass measuring in excess of 12 cm. The tumor seems to replace the entire left lower lobe and probably involves greater than 50% of the right hemithorax. Per his primary oncologist the patient is being evaluated for concurrent chemoradiotherapy. He is also considering palliation. I am not very familiar with this individual's baseline functional status, based of what I have seen today he seems to be a rather marginal candidate for aggressive disease directed therapy. I will however defer to his primary oncologist who knows this patient's true baseline. I did touch on goals of care with the patient when I spoke to him in the room and the patient himself seems to be very motivated to proceed with systemic therapy. Garfield Almaguer MD Feb 25, 2017 19:10
[2017-02-25] MEDS: oxyCODONE HCL 10 MG CONTROLLED RELEASE TAB PO SCH (21:28)
[2017-02-26] VITALS (10 sets, daily range): BP systolic 94–116; BP diastolic 52–59; PULSE 88–98; RESP 13–23; TEMP 97.4–99.5; O2SAT 94–97
[2017-02-26 05:12] LABS: AUTOMATED NEUTROPHIL # 9.4 TH/MM3 (1.8-7.7); BASOPHIL # 0.1 TH/MM3 (0-0.2); BASOPHIL % 0.5 % (0.0-2.0); EOSINOPHIL % 0.2 % (0.0-4.0); HEMATOCRIT 25.2 % (39.0-51.0); LYMPH % 7.4 % (9.0-44.0); LYMPHOCYTE # 0.9 TH/MM3 (1.0-4.8); MEAN CELL VOLUME 87.2 FL (80.0-100.0); MEAN CORPUSCULAR HEMOGLOBIN 28.4 PG (27.0-34.0); MEAN CORPUSCULAR HGB CONC 32.6 % (32.0-36.0); MONO % 11.6 % (0.0-8.0); NEUT % 80.3 % (16.0-70.0); PLATELET COUNT 525 TH/MM3 (150-450); RED BLOOD COUNT 2.89 MIL/MM3 (4.50-5.90); RED CELL DISTRIBUTION WIDTH 14.6 % (11.6-17.2); WHITE BLOOD COUNT 11.8 TH/MM3 (4.0-11.0)
[2017-02-26 05:19] LABS: HEMO FLAGS AUTO DIFF
[2017-02-26 06:06] LABS: INTERNATIONAL NORMALIZED RATIO 2.7 RATIO; PROTHROMBIN TIME - PATIENT 30.6 SEC (9.8-11.6)
[2017-02-26 07:18] LABS: BURR CELLS 1+ (NORMAL); SCAN/DIFF AUTO DIFF CONFIRMED
[2017-02-26] MEDS: MEGESTROL ACETATE 40 MG TAB PO SCH ×4 (08:44→21:23)
[2017-02-26] MEDS: DOCUSATE SODIUM 50 MG/SENNA 8.6 MG TAB PO SCH ×2 (08:45→21:23)
[2017-02-26] MEDS: LIPASE/PROTEASE/AMYLASE (24,000/76,000/120,000) CAP PO SCH ×3 (08:45→18:55)
[2017-02-26] MEDS: SODIUM CHLORIDE 0.9% FLUSH 10 ML FLUSH IV FLUSH SCH ×2 (08:46→21:23)
[2017-02-26] MEDS: PANTOPRAZOLE SODIUM 40 MG VIAL IV PUSH SCH ×2 (08:46→21:23)
--- NOTE | 2017-02-26 09:20 | HHI.HCPN ---
Reason for visit a. To assist with evaluation and management of symptoms including: pain. b. To assist medical decision maker(s) with: better understanding of current medical conditions; weighing benefits/burdens of medical treatment options; making medical treatment decisions. Subjective/Interval History INR has decreased. Pt at bedside eating breakfast. at bedside. Pt said he slept well at night and feels oral pain med is working. He rate his pain at 5/10 currently for which he say he will take his "pain pill." He is amenable to current pain regimen. He understands it will likely need to be titrated later as outpatient. No change in goals of care, he wants to at least try chemoradiation. Family/friend interactions at bedside. No further question. Advance Directives Living Will: Completed, but not made available Health Care Surrogate: Copy in medical record Objective Vital Signs Date Time Temp Pulse Resp B/P Pulse Ox O2 Delivery O2 Flow Rate FiO2 02/26/17 08:00 97.6 98 19 106/55 02/26/17 07:39 94 Nasal Cannula 4.00 02/26/17 07:00 97 02/26/17 04:24 99.5 90 16 94/56 95 02/26/17 00:00 98.2 96 23 116/52 95 02/25/17 21:52 95 Nasal Cannula 4.00 02/25/17 20:00 98.4 92 16 126/63 94 02/25/17 19:00 90 02/25/17 16:00 97.5 90 16 121/65 02/25/17 12:42 14 02/25/17 12:00 98.0 88 19 107/60 Intake & Output 02/26/17 02/26/17 06:59 18:59 Intake Total 280 ml Output Total 200 ml Balance 80 ml Intake Oral 280 ml Output Urine Total 200 ml # Voids 2 # Bowel Movements 0 Physical Exam CONSTITUTIONAL/GENERAL: This is an frail elderly gentleman, alert but fatigued SKIN: No jaundice, rashes, or lesions. Ecchymoses on upper extremities. No wounds seen anteriorly. Skin temperature appropriate. Not diaphoretic. HEAD: Atraumatic. Normocephalic. EYES: Pupils equal and round and reactive. Extraocular motions intact. No scleral icterus. No injection or drainage. Fundi not examined. ENT: Hearing grossly normal. Nose without bleeding or purulent drainage. Throat without visible erythema, exudates, masses, or lesions. NECK: Trachea midline. Supple, nontender. No palpable thyroid enlargement or nodularity. CARDIOVASCULAR: Regular rate and rhythm without murmurs, gallops, or rubs. RESPIRATORY/CHEST: Symmetric, unlabored respirations. Clear to auscultation. Breath sounds equal bilaterally. No wheezes, rales, or rhonchi. GASTROINTESTINAL: Abdomen soft, non-tender, nondistended. No hepato-splenomegaly , or palpable masses. No guarding. Bowel sounds present. GENITOURINARY: Without palpable bladder distension. Dong catheter in place. MUSCULOSKELETAL: Extremities without clubbing, cyanosis, or edema. No joint tenderness or effusion noted. No calf tenderness. No mottling or clubbing. LYMPHATICS: No palpable cervical or supraclavicular adenopathy. NEUROLOGICAL: Awake and alert. Motor and sensory grossly within normal limits. Follows commands. Cognitively sharp. Moves all extremities. PSYCHIATRIC: No obvious anxiety/depression. no apparent hallucinations or other psychotic thought process. Diagnostic Tests Laboratory Laboratory Tests Test 02/23/17 02/23/17 02/24/17 02/24/17 10:25 20:07 04:40 11:45 White Blood Count 11.4 TH/MM3 12.1 TH/MM3 (4.0-11.0) (4.0-11.0) Red Blood Count 3.15 MIL/MM3 3.05 MIL/MM3 (4.50-5.90) (4.50-5.90) Hemoglobin 8.9 GM/DL 8.5 GM/DL 8.5 GM/DL 8.2 GM/DL (13.0-17.0) (13.0-17.0) (13.0-17.0) (13.0-17.0) Hematocrit 27.0 % 26.0 % (39.0-51.0) (39.0-51.0) Mean Corpuscular Volume 85.8 FL 85.2 FL (80.0-100.0) (80.0-100.0) Mean Corpuscular Hemoglobin 28.3 PG 27.9 PG (27.0-34.0) (27.0-34.0) Mean Corpuscular Hemoglobin 33.0 % 32.7 % Concent (32.0-36.0) (32.0-36.0) Red Cell Distribution Width 13.1 % 13.6 % (11.6-17.2) (11.6-17.2) Platelet Count 524 TH/MM3 538 TH/MM3 (150-450) (150-450) Mean Platelet Volume 7.3 FL 7.3 FL (7.0-11.0) (7.0-11.0) Neutrophils (%) (Auto) 83.4 % 78.8 % (16.0-70.0) (16.0-70.0) Lymphocytes (%) (Auto) 7.6 % 8.5 % (9.0-44.0) (9.0-44.0) Monocytes (%) (Auto) 8.9 % (0.0-8.0) 12.3 % (0.0-8.0) Eosinophils (%) (Auto) 0.1 % (0.0-4.0) 0.2 % (0.0-4.0) Basophils (%) (Auto) 0.0 % (0.0-2.0) 0.2 % (0.0-2.0) Neutrophils # (Auto) 9.6 TH/MM3 9.6 TH/MM3 (1.8-7.7) (1.8-7.7) Lymphocytes # (Auto) 0.9 TH/MM3 1.0 TH/MM3 (1.0-4.8) (1.0-4.8) Monocytes # (Auto) 1.0 TH/MM3 1.5 TH/MM3 (0-0.9) (0-0.9) Eosinophils # (Auto) 0.0 TH/MM3 0.0 TH/MM3 (0-0.4) (0-0.4) Basophils # (Auto) 0.0 TH/MM3 0.0 TH/MM3 (0-0.2) (0-0.2) CBC Comment DIFF FINAL DIFF FINAL Differential Comment Prothrombin Time 43.6 SEC 65.2 SEC (9.8-11.6) (9.8-11.6) Prothromb Time International 3.7 RATIO 5.5 RATIO Ratio Sodium Level 139 MEQ/L 138 MEQ/L (136-145) (136-145) Potassium Level 4.7 MEQ/L 4.8 MEQ/L (3.5-5.1) (3.5-5.1) Chloride Level 101 MEQ/L 103 MEQ/L (98-107) (98-107) Carbon Dioxide Level 26.7 MEQ/L 26.4 MEQ/L (21.0-32.0) (21.0-32.0) Anion Gap 11 MEQ/L (5-15) 9 MEQ/L (5-15) Blood Urea Nitrogen 70 MG/DL (7-18) 66 MG/DL (7-18) Creatinine 1.50 MG/DL 1.40 MG/DL (0.60-1.30) (0.60-1.30) Estimat Glomerular Filtration 44 ML/MIN (>89) 48 ML/MIN (>89) Rate Random Glucose 151 MG/DL 115 MG/DL (74-106) (74-106) Calcium Level 8.2 MG/DL 7.7 MG/DL (8.5-10.1) (8.5-10.1) Total Bilirubin 1.8 MG/DL 1.0 MG/DL (0.2-1.0) (0.2-1.0) Aspartate Amino Transf 44 U/L (15-37) 45 U/L (15-37) (AST/SGOT) Alanine Aminotransferase 43 U/L (12-78) 40 U/L (12-78) (ALT/SGPT) Alkaline Phosphatase 149 U/L 158 U/L (45-117) (45-117) Total Protein 6.6 GM/DL 6.1 GM/DL (6.4-8.2) (6.4-8.2) Albumin 2.3 GM/DL 2.1 GM/DL (3.4-5.0) (3.4-5.0) Activated Partial 74.1 SEC Thromboplast Time (24.3-30.1) Phosphorus Level 3.1 MG/DL (2.5-4.9) Magnesium Level 2.4 MG/DL (1.5-2.5) Direct Bilirubin 0.6 MG/DL (0.0-0.2) Indirect Bilirubin 0.4 MG/DL (0.0-0.8) Test 02/24/17 02/25/17 02/25/17 02/26/17 19:44 04:40 15:32 04:15 Hemoglobin 8.1 GM/DL 8.6 GM/DL 9.0 GM/DL 8.2 GM/DL (13.0-17.0) (13.0-17.0) (13.0-17.0) (13.0-17.0) White Blood Count 11.1 TH/MM3 11.8 TH/MM3 (4.0-11.0) (4.0-11.0) Red Blood Count 2.97 MIL/MM3 2.89 MIL/MM3 (4.50-5.90) (4.50-5.90) Hematocrit 26.0 % 28.1 % 25.2 % (39.0-51.0) (39.0-51.0) (39.0-51.0) Mean Corpuscular Volume 87.4 FL 87.2 FL (80.0-100.0) (80.0-100.0) Mean Corpuscular Hemoglobin 28.9 PG 28.4 PG (27.0-34.0) (27.0-34.0) Mean Corpuscular Hemoglobin 33.0 % 32.6 % Concent (32.0-36.0) (32.0-36.0) Red Cell Distribution Width 14.6 % 14.6 % (11.6-17.2) (11.6-17.2) Platelet Count 522 TH/MM3 525 TH/MM3 (150-450) (150-450) Mean Platelet Volume 7.5 FL 7.5 FL (7.0-11.0) (7.0-11.0) Neutrophils (%) (Auto) 75.2 % 80.3 % (16.0-70.0) (16.0-70.0) Lymphocytes (%) (Auto) 13.7 % 7.4 % (9.0-44.0) (9.0-44.0) Monocytes (%) (Auto) 10.4 % 11.6 % (0.0-8.0) (0.0-8.0) Eosinophils (%) (Auto) 0.6 % (0.0-4.0) 0.2 % (0.0-4.0) Basophils (%) (Auto) 0.1 % (0.0-2.0) 0.5 % (0.0-2.0) Neutrophils # (Auto) 8.3 TH/MM3 9.4 TH/MM3 (1.8-7.7) (1.8-7.7) Lymphocytes # (Auto) 1.5 TH/MM3 0.9 TH/MM3 (1.0-4.8) (1.0-4.8) Monocytes # (Auto) 1.2 TH/MM3 1.4 TH/MM3 (0-0.9) (0-0.9) Eosinophils # (Auto) 0.1 TH/MM3 0.0 TH/MM3 (0-0.4) (0-0.4) Basophils # (Auto) 0.0 TH/MM3 0.1 TH/MM3 (0-0.2) (0-0.2) CBC Comment DIFF FINAL AUTO DIFF Differential Comment AUTO DIFF CONFIRMED Prothrombin Time 58.6 SEC 30.6 SEC (9.8-11.6) (9.8-11.6) Prothromb Time International 4.9 RATIO 2.7 RATIO Ratio Sodium Level 139 MEQ/L (136-145) Potassium Level 4.8 MEQ/L (3.5-5.1) Chloride Level 104 MEQ/L (98-107) Carbon Dioxide Level 27.0 MEQ/L (21.0-32.0) Anion Gap 8 MEQ/L (5-15) Blood Urea Nitrogen 59 MG/DL (7-18) Creatinine 1.40 MG/DL (0.60-1.30) Estimat Glomerular Filtration 48 ML/MIN (>89) Rate Random Glucose 109 MG/DL (74-106) Calcium Level 7.5 MG/DL (8.5-10.1) Phosphorus Level 2.9 MG/DL (2.5-4.9) Magnesium Level 2.3 MG/DL (1.5-2.5) Albumin 2.1 GM/DL (3.4-5.0) Khushi Cells 1+ (NORMAL) Result Diagram: 02/26/17 0415 02/25/17 0440 Imaging Last Impressions Head CT 02/22/17 0000 Signed Impressions: Service Date/Time: Wednesday, February 22, 2017 22:09 - CONCLUSION: Normal examination for a patient of this age. Franco Parnlel MD Chest X-Ray 02/22/17 0000 Signed Impressions: Service Date/Time: Wednesday, February 22, 2017 21:45 - CONCLUSION: 1. Large left effusion occupying about two thirds of the left hemithorax. This is increased in size since February 04. Franco Parnell MD Chest CT 02/22/17 0000 Signed Impressions: Service Date/Time: Wednesday, February 22, 2017 23:48 - CONCLUSION: 1. Interval increase in the size of the large left lung mass. 2. Interval increase in left effusion which is partially loculated. 3. Chronic pancreatitis again noted with multiple calcifications. The duct remains prominent. 4. Severe hepatic steatosis. Silas Altamirano MD Assessment and Plan Disease Oriented Problem List: (1) Non-small cell carcinoma of lung (2) Supratherapeutic INR (3) Back pain Symptom Scale: (1) Pain Comment: 5-6. More in the upper back. Pain could be cancer burden, back pain. (2) Dyspnea Comment: cancer burden. Pertinent Non-Medical Issues Psychosocial: Spiritual: Legal: Ethical issues impacting care: Important Contacts Gabbi Asencio (spouse ) [phone] Jennifer Ling (daughter in [place]) [phone] Akosua Lu (daughter in [place]) [phone] Prognosis 86-year-old with non-small cell lung cancer, that her imaging has grown in size in the left side. Patient course of medical illness complicated by DVT, PE, fatigue, and pain. He is appropriate for hospice of goals of care are for comfort measures only. Code Status: No Code Plan == capacity-he is able to state that he has cancer, and he has capacity to make medical decisions. == Code: DNR/DNI/ no resucitation. He completed a community DNR today. == Health Care Surrogate: He completed HCS today. Gabbi Asencio () is primary. Daughters ( Saran and Akosua) are alternate. == Goals of care=Had a long family meeting with patient and patient's spouse . Review patient's hospital course, reviewed patient functional status, reviewed challenges that patient will face, including likely intolerance to chemoradiation given patient's advanced age. Patient nodded his head and says he he understands, but he would at least want to try. Spoke with patient and about hospice services and what they can offer. Pt's goals is: To try chemotherapy and radiation as offered. If for some reason patient is not responsive to treatment, or patient is intolerant to treatment ( which I emphasize is a real possibility), they are amenable to hospice services at that point. is supportive, but realistic about patient 's functional status and situation. No change in goals of care today. == Pain : continue oxycontin (long acting) and oxycodone as breakthrough. Will probably need titration as outpatient. == palliative care will continue to follow as clinical course evolves. Addendum: went and speak with patient for a second time, and pt maintain he wants to try. Offered hospice for at least for information services, and he said, he would want to speak to his first. Reviewed pain management again , and bowel regiment. No further questions. Time Spent Total Floor Time (mins): 35 Face to Face Time (mins): 25 >50% Counseling/Coord of Care: Yes Attestation To help prompt me to consider important information that might be impacting today's encounter and assessment, information from prior notes written by myself or my colleagues may have been "brought forward" into today's note. My signature on this note, however, is an attestation that I personally performed the exam, history, and/or decision-making noted today, and, unless otherwise indicated, the interactions with patient, family, and staff as well as the review of records all occurred today. I also attest that the listed assessment and stated plan reflect my best clinical judgment today based on the combination of historical information, prior notes, and today's exam/ interactions. When time spent is documented, it refers only to time spent today by the signer, or if indicated, combined time spent today by collaborating physician/nurse practitioner. Kana Grady MD Feb 26, 2017 09:20
--- NOTE | 2017-02-26 09:59 | HHI.PR ---
Subjective Remarks Follow up lung cancer, weakness, coagulopathy. Patient states that his pain is adequately controlled with current medications, but he is concerned about the meds lasting through the night if he goes home. He does feel short of breath. Objective Vitals Vital Signs Date Time Temp Pulse Resp B/P Pulse Ox O2 Delivery O2 Flow Rate FiO2 02/26/17 08:00 97.6 98 19 106/55 02/26/17 07:39 94 Nasal Cannula 4.00 02/26/17 07:00 97 02/26/17 04:24 99.5 90 16 94/56 95 02/26/17 00:00 98.2 96 23 116/52 95 02/25/17 21:52 95 Nasal Cannula 4.00 02/25/17 20:00 98.4 92 16 126/63 94 02/25/17 19:00 90 02/25/17 16:00 97.5 90 16 121/65 02/25/17 12:42 14 02/25/17 12:00 98.0 88 19 107/60 I/O 02/25/17 02/25/17 02/25/17 02/26/17 02/26/17 02/26/17 07:00 15:00 23:00 07:00 15:00 23:00 Intake Total 300 ml 120 ml 220 ml 60 ml Output Total 650 ml 400 ml 150 ml 50 ml 500 ml Balance -350 ml -280 ml 70 ml 10 ml -500 ml Intake Oral 300 ml 120 ml 220 ml 60 ml Output Urine Total 650 ml 400 ml 150 ml 50 ml 500 ml # Voids 1 1 # Bowel Movements 0 0 Result Diagram: 02/26/17 0415 02/25/17 0440 Imaging Last Impressions Head CT 02/22/17 0000 Signed Impressions: Service Date/Time: Wednesday, February 22, 2017 22:09 - CONCLUSION: Normal examination for a patient of this age. Franco Parnell MD Chest X-Ray 02/22/17 0000 Signed Impressions: Service Date/Time: Wednesday, February 22, 2017 21:45 - CONCLUSION: 1. Large left effusion occupying about two thirds of the left hemithorax. This is increased in size since February 04. Franco Parnell MD Chest CT 02/22/17 0000 Signed Impressions: Service Date/Time: Wednesday, February 22, 2017 23:48 - CONCLUSION: 1. Interval increase in the size of the large left lung mass. 2. Interval increase in left effusion which is partially loculated. 3. Chronic pancreatitis again noted with multiple calcifications. The duct remains prominent. 4. Severe hepatic steatosis. Silas Altamirano MD Objective Remarks General: Elderly male in no acute distress. Sitting up in a chair. Heart: Regular rate and rhythm. No murmur. Lungs: Decreased breath sounds on the left. Breathing is nonlabored. Abdomen: Soft, nontender, nondistended. Extremities: No lower extremity edema. Psych: Alert and oriented. Urinary Catheter: No Vascular Central Line Catheter: No A/P Problem List: (1) Supratherapeutic INR ICD Code: R79.1 Status: Acute (2) Non-small cell carcinoma of lung ICD Code: C34.90 Status: Chronic Assessment and Plan 1. Coagulopathy: Secondary to Coumadin. Patient received FFP 2 units. He also received vitamin K. Coumadin on hold. Hemoglobin is stable, but low. INR now 2.7. 2. Non-small cell lung cancer: Appreciate oncology recommendations. Interventional radiology consulted for port placement. Unable to have procedure today due to elevated INR. Increasing oxygen requirement. 3. Anemia: Hemoglobin low, but stable. Status post transfusion of 2 units PRBCs. Monitor H&H. 4. Appreciate palliative care recommendations. Discussed with Dr. Grady. Patient is a hospice candidate, but as of now he wants to be aggressive with treatment and would like to pursue chemotherapy and radiation. Discharge Planning Patient would need home oxygen if discharged home, however he is also significantly weak and may require SNF placement. Palliative care will discuss hospice with the patient and his . Cash Adrian MD Feb 26, 2017 09:59
[2017-02-26 10:28] LABS: INHIBITOR SCRN PT NORMAL 10.7 SEC; INHIBITOR SCRN-PT CONTROL 10.9 SEC; PT 1PT:1NL 12.3 SEC (9.8-11.6)
[2017-02-26 10:29] LABS: APTT 1PT:1NL 32.4 SEC (24.3-30.1); INHIBITOR SCREEN-APTT PATIENT 58.7 SEC (24.3-30.1); INHIBITOR SCRN APTT NORMAL 26.1 SEC (24.3-30.1); INHIBITOR SCRN-APTT CONTROL 26.3 SEC; PT 1PT:4NL 10.9 SEC (9.8-11.6); PT 4PT:1NL 16.6 SEC (9.8-11.6)
[2017-02-26 10:30] LABS: APTT 1PT:4NL 28.3 SEC (24.3-30.1)
[2017-02-26 10:42] LABS: INHIB SCRN PT PATIENT 32.5 SEC (9.8-11.6)
[2017-02-26] MEDS: DRONABINOL 2.5 MG CAP PO SCH ×2 (11:00→16:22)
[2017-02-26 11:26] LABS: PT 1N:1P 1HR-37C 12.4 SEC (9.8-11.6); PT NORM 1 HR-37C 10.7 SEC
[2017-02-26 11:27] LABS: APTT 1N:1P 1HR-37C 34.1 SEC (24.3-30.1); APTT NORM 1 HR-37C 27.7 SEC
[2017-02-26 14:47] LABS: HEMATOCRIT 25.8 % (39.0-51.0); REVIEW FLAG FINAL
--- NOTE | 2017-02-26 18:16 | PD.ONC.PN ---
Subjective Subjective Remarks Denies any bleeding. Pt state had question. was called, state that they decided not to have chemo or XRT. Pt in her opinion was too weak, pointing out he cannot even lift up a fork. She decline hospice consult tonight, waiting for Dr. Grady tomorrow. Objective Data Date Time Temp Pulse Resp B/P Pulse Ox O2 Delivery O2 Flow Rate FiO2 02/26/17 16:00 98.5 88 13 103/59 02/26/17 12:00 98.7 90 19 102/52 02/26/17 09:49 15 02/26/17 08:00 97.6 98 19 106/55 02/26/17 07:39 94 Nasal Cannula 4.00 02/26/17 07:00 97 02/26/17 04:24 99.5 90 16 94/56 95 02/26/17 00:00 98.2 96 23 116/52 95 02/25/17 21:52 95 Nasal Cannula 4.00 02/25/17 20:00 98.4 92 16 126/63 94 02/25/17 19:00 90 02/26/17 02/26/17 02/26/17 07:00 15:00 23:00 Intake Total 60 ml 640 ml Output Total 50 ml 500 ml 125 ml Balance 10 ml 140 ml -125 ml Result Diagram: 02/26/17 1444 02/25/17 0440 Laboratory Results Laboratory Tests Test 02/26/17 02/26/17 04:15 14:44 White Blood Count 11.8 TH/MM3 Red Blood Count 2.89 MIL/MM3 Hemoglobin 8.2 GM/DL 8.4 GM/DL Hematocrit 25.2 % 25.8 % Mean Corpuscular Volume 87.2 FL Mean Corpuscular Hemoglobin 28.4 PG Mean Corpuscular Hemoglobin 32.6 % Concent Red Cell Distribution Width 14.6 % Platelet Count 525 TH/MM3 Mean Platelet Volume 7.5 FL Neutrophils (%) (Auto) 80.3 % Lymphocytes (%) (Auto) 7.4 % Monocytes (%) (Auto) 11.6 % Eosinophils (%) (Auto) 0.2 % Basophils (%) (Auto) 0.5 % Neutrophils # (Auto) 9.4 TH/MM3 Lymphocytes # (Auto) 0.9 TH/MM3 Monocytes # (Auto) 1.4 TH/MM3 Eosinophils # (Auto) 0.0 TH/MM3 Basophils # (Auto) 0.1 TH/MM3 CBC Comment AUTO DIFF Differential Comment AUTO DIFF CONFIRMED Avalon Cells 1+ Prothrombin Time 32.5 SEC Prothrombin Time Control 10.9 SEC Prothromb Time International 2.7 RATIO Ratio Activated Partial 58.7 SEC Thromboplast Time APTT Control 26.3 SEC Mix PT Normal Plasma Immediate 10.7 SEC Mix PT Normal Plasma 1 Hour 10.7 SEC Mix PT Patient/Normal 1:4 10.9 SEC Immediate Mix PT Patient/Normal 1:1 12.3 SEC Immediate Mix PT Patient/Normal 1:1 1 12.4 SEC Hr 37c Mix PT Patient/Normal 4:1 16.6 SEC Immediate PT Mixing Studies Interpretation Mix PTT Normal Plasma 26.1 SEC Immediate Mix PTT Normal Plasma 1 Hour 27.7 SEC Mix PTT Patient/Normal 1:4 28.3 SEC Immed Mix PTT Patient/Normal 1:1 32.4 SEC Mix PTT Patient/Normal 1:1 1 34.1 SEC Hr 37c Mix PTT Patient/Normal 4:1 39.6 SEC Immed Circulating Anticoagulant PTT Intrp Coagulation Factor Inhibitor Screen Administered Medications Medications (Trade) Dose Ordered Sig/Mary Route PRN Reason Start Time Stop Time Status Last Admin Dose Admin Sodium Chloride (NS Flush) 2 ml BID IV FLUSH 02/23/17 09:00 02/26/17 08:46 Senna/Docusate Sodium (Halima-Colace) 1 tab BID PO 02/23/17 09:00 02/26/17 08:45 Pantoprazole Sodium (Protonix Inj) 40 mg Q12H IV PUSH 02/23/17 21:00 02/26/17 08:46 Amylase/Lipase/ Protease (Creon [id number]) 2 cap TIDPC PO 02/23/17 10:30 02/26/17 13:01 Dronabinol (Marinol) 2.5 mg BID@11,16 PO 02/24/17 12:00 02/26/17 16:22 Megestrol Acetate (Megace) 40 mg QID PO 02/24/17 14:00 02/26/17 13:01 Oxycodone HCl (Roxicodone) 5 mg Q4H PRN PO PAIN SCALE 3 TO 5 02/25/17 15:30 02/26/17 08:49 Oxycodone HCl (OxyCONTIN CR) 10 mg HS PO 02/25/17 21:00 02/25/17 21:28 Oxycodone HCl (Roxicodone) 7.5 mg Q4H PRN PO PAIN SCALE 6 TO 10 02/25/17 16:15 02/25/17 23:49 Objective Remarks GENERAL: Cachectic man, well-developed patient. SKIN: Warm and dry. Senile purpura both arms, no confluent lesion, no deep hematoma. HEAD: Normocephalic. EYES: No scleral icterus. No injection or drainage. NECK: Supple, trachea midline. No JVD or lymphadenopathy. LYMPHATIC: No adenopathy. CARDIOVASCULAR: Regular rate and rhythm without murmurs. RESPIRATORY: Breath sounds equal bilaterally. No accessory muscle use. GASTROINTESTINAL: Abdomen soft, non-tender, nondistended. EXTREMITIES: No cyanosis, or edema. MUSCULOSKELETAL: Adequate muscle tone. NEUROLOGICAL: No obvious focal deficit. Awake, alert, and oriented x3. PSYCHIATRIC: Appropriate mood and affect; insight and judgment normal. Assessment/Plan Problem List: (1) Supratherapeutic INR Status: Acute Plan: 02/26/17. Noted PT/PTT did not correct on mixing study suggest presence of inhibitor. Further more PT/PTT prolong at time 1 hour. Monitor for bleeding, clinically do not look like acquired inhibitor, suspect severely deficient vitamin K dependent factors <30%. Check for antiphospholipid antibody and lupus anticoagulant. Defer ultimately to hospice decision for anticoagulation. He was dosed with vitamin K earlier today for supratherapeutic INR. Repeat INR tomorrow morning. Recommend anticoagulation with Eliquis 5 mg twice daily; 2.5 mg twice daily may also be reasonable. (2) Lung mass Status: Acute Plan: 02/26/17. reports decision to for go treatment. Encourage to meet with Dr. Grady to coordinate palliative care at home or hospice care center. Dr. Becker to come in tomorrow. Massive left-sided lung mass measuring in excess of 12 cm. The tumor seems to replace the entire left lower lobe and probably involves greater than 50% of the right hemithorax. Per his primary oncologist the patient is being evaluated for concurrent chemoradiotherapy. He is also considering palliation. I am not very familiar with this individual's baseline functional status, based of what I have seen today he seems to be a rather marginal candidate for aggressive disease directed therapy. I will however defer to his primary oncologist who knows this patient's true baseline. I did touch on goals of care with the patient when I spoke to him in the room and the patient himself seems to be very motivated to proceed with systemic therapy. Assessment 86/yo man with lung mass and coagulopathy. Plan 1. Check LAC and APA, follow repeat Coag labs and fibrinogen. 2. Monitor for bleeding. 3. Noted pt and 's decision not to be treated. Elena Wade MD Feb 26, 2017 18:16
[2017-02-26] MEDS: oxyCODONE HCL 10 MG CONTROLLED RELEASE TAB PO SCH (21:24)
[2017-02-26 22:08] LABS: TRANSFERRIN IRON PROFILE 107 MG/DL (200-360)
[2017-02-26 22:23] LABS: FERRITIN 2442 NG/ML (26-388)
[2017-02-27] VITALS (11 sets, daily range): BP systolic 90–121; BP diastolic 52–66; PULSE 82–92; RESP 12–21; TEMP 97.6–98.4; O2SAT 95–98
[2017-02-27 05:11] LABS: AUTOMATED NEUTROPHIL # 8.8 TH/MM3 (1.8-7.7); BASOPHIL % 0.1 % (0.0-2.0); EOSINOPHIL % 0.4 % (0.0-4.0); HEMATOCRIT 24.3 % (39.0-51.0); LYMPH % 8.9 % (9.0-44.0); MEAN CELL VOLUME 87.4 FL (80.0-100.0); MEAN CORPUSCULAR HEMOGLOBIN 28.5 PG (27.0-34.0); MEAN CORPUSCULAR HGB CONC 32.7 % (32.0-36.0); MONO % 12.2 % (0.0-8.0); NEUT % 78.4 % (16.0-70.0); PLATELET COUNT 509 TH/MM3 (150-450); RED BLOOD COUNT 2.78 MIL/MM3 (4.50-5.90); RED CELL DISTRIBUTION WIDTH 14.2 % (11.6-17.2); WHITE BLOOD COUNT 11.1 TH/MM3 (4.0-11.0)
[2017-02-27 05:16] LABS: HEMO FLAGS DIFF FINAL
[2017-02-27 06:43] LABS: INTERNATIONAL NORMALIZED RATIO 2.1 RATIO; PROTHROMBIN TIME - PATIENT 23.7 SEC (9.8-11.6)
[2017-02-27] MEDS: LIPASE/PROTEASE/AMYLASE (24,000/76,000/120,000) CAP PO SCH ×3 (08:47→17:46)
[2017-02-27] MEDS: SODIUM CHLORIDE 0.9% FLUSH 10 ML FLUSH IV FLUSH SCH ×2 (08:47→20:57)
[2017-02-27] MEDS: MEGESTROL ACETATE 40 MG TAB PO SCH ×4 (08:48→20:57)
[2017-02-27] MEDS: PANTOPRAZOLE SODIUM 40 MG VIAL IV PUSH SCH ×2 (08:48→20:57)
[2017-02-27] MEDS: DOCUSATE SODIUM 50 MG/SENNA 8.6 MG TAB PO SCH ×2 (08:48→20:57)
[2017-02-27] MEDS: DRONABINOL 2.5 MG CAP PO SCH ×2 (11:05→17:46)
[2017-02-27] MEDS: MORPHINE SULFATE 4 MG/ML INJ IV PUSH PRN ×2 (12:47→18:28)
--- NOTE | 2017-02-27 14:53 | HHI.PR ---
Subjective Remarks Follow up coagulopathy, lung cancer. Patient feels weak. Pain is currently controlled. He and his have decided not to pursue chemotherapy. Objective Vitals Vital Signs Date Time Temp Pulse Resp B/P Pulse Ox O2 Delivery O2 Flow Rate FiO2 02/27/17 12:00 98.0 84 21 121/66 95 02/27/17 10:00 18 02/27/17 08:00 97.6 84 19 106/55 02/27/17 07:16 82 02/27/17 04:00 98.0 84 12 95/53 95 02/27/17 00:00 98.4 90 12 90/52 96 02/26/17 20:01 97.4 96 16 100/52 97 02/26/17 20:00 90 02/26/17 19:20 94 Nasal Cannula 4.00 02/26/17 16:00 98.5 88 13 103/59 I/O 02/26/17 02/26/17 02/26/17 02/27/17 02/27/17 02/27/17 07:00 15:00 23:00 07:00 15:00 23:00 Intake Total 60 ml 640 ml 240 ml 100 ml Output Total 50 ml 500 ml 125 ml Balance 10 ml 140 ml 115 ml 100 ml Intake Oral 60 ml 640 ml 240 ml 100 ml Output Urine Total 50 ml 500 ml 125 ml # Voids 1 1 1 # Bowel Movements 0 0 0 Result Diagram: 02/27/17 0444 02/25/17 0440 Imaging Last Impressions Head CT 02/22/17 0000 Signed Impressions: Service Date/Time: Wednesday, February 22, 2017 22:09 - CONCLUSION: Normal examination for a patient of this age. Franco Parnell MD Chest X-Ray 02/22/17 0000 Signed Impressions: Service Date/Time: Wednesday, February 22, 2017 21:45 - CONCLUSION: 1. Large left effusion occupying about two thirds of the left hemithorax. This is increased in size since February 04. Franco Parnell MD Chest CT 02/22/17 0000 Signed Impressions: Service Date/Time: Wednesday, February 22, 2017 23:48 - CONCLUSION: 1. Interval increase in the size of the large left lung mass. 2. Interval increase in left effusion which is partially loculated. 3. Chronic pancreatitis again noted with multiple calcifications. The duct remains prominent. 4. Severe hepatic steatosis. Silas Altamirano MD Objective Remarks General: Elderly male in no acute distress. Heart: Regular rate and rhythm. No murmur. Lungs: Decreased breath sounds on the left. Breathing is nonlabored. Abdomen: Soft, nontender, nondistended. Extremities: No lower extremity edema. Psych: Alert and oriented. Urinary Catheter: No Vascular Central Line Catheter: No A/P Problem List: (1) Supratherapeutic INR ICD Code: R79.1 Status: Acute (2) Non-small cell carcinoma of lung ICD Code: C34.90 Status: Chronic Assessment and Plan 1. Coagulopathy: Secondary to Coumadin. Patient received FFP 2 units. He also received vitamin K. Coumadin on hold. Hemoglobin is slightly decreased today. INR now 2.1. 2. Non-small cell lung cancer: Appreciate oncology recommendations. Interventional radiology consulted for port placement. Unable to have procedure today due to elevated INR. 3. Anemia: Hemoglobin low, but stable. Status post transfusion of 2 units PRBCs. Monitor H&H. 4. Appreciate palliative care recommendations. Discussed with Dr. Grady. The patient has decided to not pursue chemotherapy. He would like to speak with hospice. Discharge Planning Plan for discharge with hospice if patient chooses hospice care. Cash Adrian MD Feb 27, 2017 14:53
[2017-02-27] MEDS ORDERED: VANCOMYCIN INJ 1,000 MG in SODIUM CHLOR 0.9% 250 ML INJ 250 ML IV SCH (15:15)
[2017-02-27] MEDS ORDERED: ceFAZolin 2 GM PREMIX 50 ML IV SCH (15:15)
[2017-02-27] MEDS ORDERED: OXYC-392 PO (15:38)
[2017-02-27] MEDS ORDERED: OXYC-259 PO (15:38)
--- NOTE | 2017-02-27 15:38 | HHI.DCPOC ---
Discharge Care Plan Diagnosis: (1) Lung mass (2) Supratherapeutic INR (3) Non-small cell carcinoma of lung (4) Back pain (5) Dyspnea (6) Pain Goals to Promote Your Health * To prevent worsening of your condition and complications * To maintain your health at the optimal level Directions to Meet Your Goals Take your medications as prescribed Follow your dietary instruction Follow activity as directed Keep your appointments as scheduled Take your immunizations and boosters as scheduled If your symptoms worsen call your PCP, if no PCP go to Urgent Care Center or Emergency Room Smoking is Dangerous to Your Health. Avoid second hand smoke Call the 24-hour hour crisis hotline for domestic abuse at Cash Adrian MD Feb 27, 2017 15:38
--- NOTE | 2017-02-27 15:49 | PD.ONC.PN ---
Subjective Subjective Remarks Complaining of extreme weakness Very poor appetite Still have left-sided rib cage pain states that patient is very weak and cannot even Shave Or eat by himself Objective Data Date Time Temp Pulse Resp B/P Pulse Ox O2 Delivery O2 Flow Rate FiO2 02/27/17 15:44 95 Nasal Cannula 4.00 02/27/17 12:00 98.0 84 21 121/66 95 02/27/17 10:00 18 02/27/17 08:00 97.6 84 19 106/55 02/27/17 07:16 82 02/27/17 04:00 98.0 84 12 95/53 95 02/27/17 00:00 98.4 90 12 90/52 96 02/26/17 20:01 97.4 96 16 100/52 97 02/26/17 20:00 90 02/26/17 19:20 94 Nasal Cannula 4.00 02/26/17 16:00 98.5 88 13 103/59 02/27/17 02/27/17 02/27/17 07:00 15:00 23:00 Intake Total 100 ml 100 ml Balance 100 ml 100 ml Result Diagram: 02/27/17 0444 02/25/17 0440 Laboratory Results Laboratory Tests Test 02/26/17 02/27/17 19:08 04:44 Iron Level 20 MCG/DL Total Iron Binding Capacity 150 MCG/DL Percent Iron Saturation 13.4 % Ferritin 2442 NG/ML White Blood Count 11.1 TH/MM3 Red Blood Count 2.78 MIL/MM3 Hemoglobin 7.9 GM/DL Hematocrit 24.3 % Mean Corpuscular Volume 87.4 FL Mean Corpuscular Hemoglobin 28.5 PG Mean Corpuscular Hemoglobin 32.7 % Concent Red Cell Distribution Width 14.2 % Platelet Count 509 TH/MM3 Mean Platelet Volume 7.0 FL Neutrophils (%) (Auto) 78.4 % Lymphocytes (%) (Auto) 8.9 % Monocytes (%) (Auto) 12.2 % Eosinophils (%) (Auto) 0.4 % Basophils (%) (Auto) 0.1 % Neutrophils # (Auto) 8.8 TH/MM3 Lymphocytes # (Auto) 1.0 TH/MM3 Monocytes # (Auto) 1.3 TH/MM3 Eosinophils # (Auto) 0.0 TH/MM3 Basophils # (Auto) 0.0 TH/MM3 CBC Comment DIFF FINAL Differential Comment Prothrombin Time 23.7 SEC Prothromb Time International 2.1 RATIO Ratio Activated Partial 50.0 SEC Thromboplast Time Fibrinogen 522 mg/dL Administered Medications Medications (Trade) Dose Ordered Sig/Mary Route PRN Reason Start Time Stop Time Status Last Admin Dose Admin Sodium Chloride (NS Flush) 2 ml BID IV FLUSH 02/23/17 09:00 02/27/17 08:47 Senna/Docusate Sodium (Halima-Colace) 1 tab BID PO 02/23/17 09:00 02/27/17 08:48 Pantoprazole Sodium (Protonix Inj) 40 mg Q12H IV PUSH 02/23/17 21:00 02/27/17 08:48 Amylase/Lipase/ Protease (Creon 24-76-120) 2 cap TIDPC PO 02/23/17 10:30 02/27/17 12:38 Dronabinol (Marinol) 2.5 mg BID@11,16 PO 02/24/17 12:00 02/27/17 11:05 Megestrol Acetate (Megace) 40 mg QID PO 02/24/17 14:00 02/27/17 12:38 Oxycodone HCl (Roxicodone) 5 mg Q4H PRN PO PAIN SCALE 3 TO 5 02/25/17 15:30 02/26/17 08:49 Oxycodone HCl (OxyCONTIN CR) 10 mg HS PO 02/25/17 21:00 02/26/17 21:24 Oxycodone HCl (Roxicodone) 7.5 mg Q4H PRN PO PAIN SCALE 6 TO 10 02/25/17 16:15 02/27/17 13:46 Morphine Sulfate (Morphine Inj) 2 mg Q3H PRN IV PUSH BREAKTHROUGH PAIN 02/27/17 12:00 02/27/17 12:47 Objective Remarks GENERAL: Well-nourished, well-developed patient. SKIN: Warm and dry. HEAD: Normocephalic. EYES: No scleral icterus. No injection or drainage. NECK: Supple, trachea midline. No JVD or lymphadenopathy. LYMPHATIC: No adenopathy. CARDIOVASCULAR: Regular rate and rhythm without murmurs. RESPIRATORY: Breath sounds equal bilaterally. No accessory muscle use. GASTROINTESTINAL: Abdomen soft, non-tender, nondistended. EXTREMITIES: No cyanosis, or edema. MUSCULOSKELETAL: Adequate muscle tone. NEUROLOGICAL: No obvious focal deficit. Awake, alert, and oriented x3. PSYCHIATRIC: Appropriate mood and affect; insight and judgment normal. Assessment/Plan Problem List: (1) Supratherapeutic INR Status: Acute Plan: 02/26/17. Noted PT/PTT did not correct on mixing study suggest presence of inhibitor. Further more PT/PTT prolong at time 1 hour. Monitor for bleeding, clinically do not look like acquired inhibitor, suspect severely deficient vitamin K dependent factors <30%. Check for antiphospholipid antibody and lupus anticoagulant. Defer ultimately to hospice decision for anticoagulation. He was dosed with vitamin K earlier today for supratherapeutic INR. Repeat INR tomorrow morning. Recommend anticoagulation with Eliquis 5 mg twice daily; 2.5 mg twice daily may also be reasonable. (2) Lung mass Status: Acute Plan: 02/27 Extensive discussion of the patient and They have decided against radiation and chemotherapy They have elected for hospice Patient is going to be Transfer to the care center tonight Patient think that he will Not get better with the radiation and chemotherapy Okay to Discharge to Hospice care center for best supportive care Questions asked and answered Signing off Available PRN 02/26/17. reports decision to for go treatment. Encourage to meet with Dr. Grady to coordinate palliative care at home or hospice care center. Dr. Becker to come in tomorrow. Massive left-sided lung mass measuring in excess of 12 cm. The tumor seems to replace the entire left lower lobe and probably involves greater than 50% of the right hemithorax. Per his primary oncologist the patient is being evaluated for concurrent chemoradiotherapy. He is also considering palliation. I am not very familiar with this individual's baseline functional status, based of what I have seen today he seems to be a rather marginal candidate for aggressive disease directed therapy. I will however defer to his primary oncologist who knows this patient's true baseline. I did touch on goals of care with the patient when I spoke to him in the room and the patient himself seems to be very motivated to proceed with systemic therapy. Assessment 86/yo man with lung mass and coagulopathy. Plan 1. Check LAC and APA, follow repeat Coag labs and fibrinogen. 2. Monitor for bleeding. 3. Noted pt and 's decision not to be treated. Linda Becker MD Feb 27, 2017 15:49
[2017-02-27] MEDS: oxyCODONE HCL 10 MG CONTROLLED RELEASE TAB PO SCH (20:57)
[2017-03-02 03:49] LABS: BETA2 GLYCOPROTEIN I AB IGA LESS THAN 9.0 SAU (< OR = 20)
--- NOTE | 2017-03-13 16:34 | HHI.DS ---
cc: Swathi Sahni MD Discharge Summary Admission Date Feb 22, 2017 at 21:52 Discharge Date: Feb 27, 2017 Admitting Diagnosis Supertherapeutic INR (1) Supratherapeutic INR ICD Code: R79.1 (2) Non-small cell carcinoma of lung ICD Code: C34.90 (3) Lung mass ICD Code: R91.8 (4) Back pain ICD Code: M54.9 (5) Dyspnea ICD Code: R06.00 Procedures None Brief History - From Admission Patient says he feels fine, reports no change in left-sided chest pain secondary to lung cancer. History is confounded by patient minimizing symptoms in the desire to go home. He denies any fatigue, however his states that he has been more fatigued, has not been able to walk over the past week due to generalized weakness. She does report that he is had some black bowel movements recently. Otherwise denies any new symptoms. Imaging Last Impressions Head CT 02/22/17 Signed Impressions: Service Date/Time: Wednesday, February 22, 2017 22:09 - CONCLUSION: Normal examination for a patient of this age. Franco Parnell MD Chest X-Ray 02/22/17 0000 Signed Impressions: Service Date/Time: Wednesday, February 22, 2017 21:45 - CONCLUSION: 1. Large left effusion occupying about two thirds of the left hemithorax. This is increased in size since February 04. Franco Parnell MD Chest CT 02/22/17 0000 Signed Impressions: Service Date/Time: Wednesday, February 22, 2017 23:48 - CONCLUSION: 1. Interval increase in the size of the large left lung mass. 2. Interval increase in left effusion which is partially loculated. 3. Chronic pancreatitis again noted with multiple calcifications. The duct remains prominent. 4. Severe hepatic steatosis. Silas Altamirano MD PE at Discharge General: Elderly male in no acute distress. Heart: Regular rate and rhythm. No murmur. Lungs: Decreased breath sounds on the left. Breathing is nonlabored. Abdomen: Soft, nontender, nondistended. Extremities: No lower extremity edema. Psych: Alert and oriented. Hospital Course The patient was admitted to the intensive care unit for management of supratherapeutic INR, anemia. Oncology was consulted for management of lung cancer, which appeared to be worsening on imaging studies. The patient and his family initially requested to continue aggressive care and pursue chemotherapy and radiation therapy. Interventional radiology was consulted for port placement. Patient's INR remained elevated. Palliative care was consulted. The patient and his decided over the next couple days that the patient was too weak to pursue aggressive treatment and they will requested comfort care measures with hospice. Arrangements were made for transfer to the hospice care center. Pt Condition on Discharge: Fair Discharge Disposition: Hospice/Med Facility Discharge Time: > 30 minutes Discharge Instructions DIET: Follow Instructions for: As Tolerated, No Restrictions Activities you can perform: Regular-No Restrictions New Medications: Oxycodone (Oxycodone) 5 Mg Tab 5 MG PO Q4H PRN PAIN SCALE 3 TO 5 #20 TAB Oxycodone ER (Oxycontin) 10 Mg Tab 10 MG PO HS Pain #30 TAB Oxycodone (Oxycodone) 5 Mg Tab 7.5 MG PO Q4H PRN PAIN SCALE 6 TO 10 #20 TAB Discontinued Medications: Atorvastatin (Atorvastatin) 10 Mg Tab 10 MG PO AC DINNER Cholesterol Management #30 Ref 0 TAB Hydrocodone-Acetaminophen (Hydrocodone-Acetaminophen) 5-325 mg Tab 1 TAB PO Q4H PAIN Ref 0 TAB Lisinopril-Hctz (Zestoretic) 20-12.5 Mg Tab 0.5 TAB PO DAILY Blood Pressure Management #30 Ref 0 TAB Megestrol (Megestrol) 40 Mg Tab 40 MG PO QID Ref 0 TAB Multivit-Min/FA/Lycopen/Lutein (Centrum Silver Men Tablet) 1 Each Tablet 1 TAB PO DAILY Niacin ER (Niacin ER) 500 Mg Tab 500 MG PO DAILY Cholesterol Management #30 Ref 0 TAB Pancrelipase (Creon) 24,000-76,000-120,000 Units Cap 2 CAP PO TIDPC Digestive Aid #90 Ref 0 CAP Warfarin (Warfarin) 7.5 Mg Tab 7.5 MG PO Fr Blood Clot Prevention #30 Ref 0 TAB Warfarin (Warfarin) 5 Mg Tab 5 MG PO SuMoTuWeThSa @ 1600 Blood Clot Prevention #30 Ref 0 TAB Cash Adrian MD Mar 13, 2017 16:34
== END 2017-02-27 21:25 | disposition home or self-care (01) | DRG 918 ==
LOC: PHED 19:20 → PHEDA 21:52 → PHICU 22:55
PROVIDERS: ADMIT Family Medicine; ATTEND Family Medicine
PROC: 30253K1 (ICD-10-PCS; principal; 2017-02-22)
PROC: 30253N1 (ICD-10-PCS; 2017-02-22)
DX: T45.511A Poisoning by anticoagulants, accidental (unintentional), initial encounter (principal); J90 Pleural effusion, not elsewhere classified; J44.9 Chronic obstructive pulmonary disease, unspecified; K86.1 Other chronic pancreatitis; N19 Unspecified kidney failure; C34.92 Malignant neoplasm of unspecified part of left bronchus or lung; D64.9 Anemia, unspecified; I10 Essential (primary) hypertension; E78.5 Hyperlipidemia, unspecified; G89.29 Other chronic pain; T45.515A Adverse effect of anticoagulants, initial encounter; K21.9 Gastro-esophageal reflux disease without esophagitis; N40.0 Benign prostatic hyperplasia without lower urinary tract symptoms; H91.90 Unspecified hearing loss, unspecified ear; F17.210 Nicotine dependence, cigarettes, uncomplicated; Z51.5 Encounter for palliative care; Z66 Do not resuscitate; Z79.01 Long term (current) use of anticoagulants; Z86.711 Personal history of pulmonary embolism; Z86.718 Personal history of other venous thrombosis and embolism
CPT/HCPCS: 36430; 70450; 71010; 71260; 77263; 77300; 77301; 77334; 77338; 77470; 80053; 80069; 80076; 80307; 82550; 82728; 83540; 83550; 83735; 84484; 85014; 85018; 85025; 85335; 85384; 85597; 85598; 85610; 85613; 85730; 86146; 86147; 86850; 86900; 86901; 86920; 86927; 93005; C9113; J2270; J3430; J7030; J7050; P9016; P9017; Q0167; Q9967